=== PATIENT | male | born 1975 | race Caucasian/White ===

== ENCOUNTER → 2019-07-27 | Outpatient (CLI) | payer MEDICARE, OTHER ==
[~2019-07-27] MED LIST: AMLO10 PO; CARV25 PO; Catapres0.2 MG PO; LISI20 PO; RISP3 PO
[2019-07-27 12:53] LABS: BASOPHILS ABSOLUTE AUTO 0.05 K/mm3 (0.00-0.23); BASOPHILS PERCENT AUTO 1 % (0-2); EOSINOPHILS ABSOLUTE AUTO 0.33 K/mm3 (0.00-0.68); EOSINOPHILS PERCENT AUTO 4 % (0-6); Hematocrit 49.3 % (37.0-53.0); Hemoglobin 17.4 g/dL (13.5-17.5); IMMATURE GRAN ABSOLUTE AUTO 0.01 K/mm3 (0.00-0.10); IMMATURE GRAN PERCENT AUTO 0 % (0-1); LYMPHOCYTES ABSOLUTE AUTO 2.34 K/mm3 (0.84-5.20); LYMPHOCYTES PERCENT AUTO 27 % (21-46); MONOCYTES ABSOLUTE AUTO 0.42 K/mm3 (0.16-1.47); MONOCYTES PERCENT AUTO 5 % (4-13); Mean Corpuscular HGB 29.7 pg (26.0-34.0); Mean Corpuscular HGB Conc 35.3 g/dL (31.5-36.5); Mean Corpuscular Volume 84 fL (80-100); Mean Platelet Volume 9.6 fL (9.1-12.4); NEUTROPHILS ABSOLUTE AUTO 5.64 K/mm3 (1.96-9.15); NEUTROPHILS PERCENT AUTO 64 % (41-73); Platelet Count 297 K/mm3 (150-400); RDW Coefficient Variation 12.2 % (11.7-14.2); Red Blood Cell Count 5.85 M/mm3 (4.30-5.90); White Blood Cell Count 8.79 K/mm3 (4.00-11.30)
[2019-07-27 13:12] LABS: Alanine Aminotransfer (ALT/SGP 35 U/L (12-78); Albumin/Globulin Ratio 0.9 (0.8-1.8); Alk Phos 121 U/L (40-126); Anion Gap 11 mmol/L (6-16); Aspartate Aminotrans (AST/SGOT 27 U/L (12-37); Bilirubin, Total 0.4 mg/dL (0.1-1.0); Blood Urea Nitrogen 11 mg/dL (8-24); Bun/Creatinine Ratio 11.5 (12.0-20.0); CO2, Blood 26 mmol/L (21-32); Calcium, Blood 9.4 mg/dL (8.5-10.1); Chloride, Blood 104 mmol/L (98-108); Creatinine, Blood 0.96 mg/dL (0.60-1.20); Globulin, Blood 4.5 g/dL (2.2-4.0); Glomerular Filtration Rate >60 (60-); Glucose, Blood 107 mg/dL (70-99); Potassium, Blood 3.2 mmol/L (3.5-5.5); Sodium, Blood 141 mmol/L (136-145); Total Protein, Blood 8.5 g/dL (6.4-8.2)
== END | disposition home or self-care (01) ==
LOC: LAB SHORT 12:47 → LAB EV 12:47
PROVIDERS: Family Medicine
DX: I10 Essential (primary) hypertension (principal); R53.83 Other fatigue
CPT/HCPCS: 80053; 84443; 85025

== ENCOUNTER 2019-09-01 22:57 | Inpatient (IN) | payer MEDICARE ==
[~2019-09-01] VITALS: Ht 182.9 cm; Wt 104.6 kg
[2019-09-01 23:19] LABS: PCO2 Arterial 52.1 mmHg (35-45); PO2 Arterial 74.1 mmHg (80-100)
[2019-09-01 23:28] LABS: Source, Urine Catheter
[2019-09-01 23:30] LABS: Chloride (POC) 107 mmol/L (98-108); Creatinine (POC) 2.2 mg/dL (0.8-1.3); Glucose (ISTAT POC) 177 mg/dL (70-99); Potassium (POC) 2.6 mmol/L (3.5-5.5); Sodium (POC) 145 mmol/L (135-148); Total CO2 (POC) 21 mmol/L (21-32)
[2019-09-01 23:31] LABS: BASOPHILS ABSOLUTE AUTO 0.08 K/mm3 (0.00-0.23); BASOPHILS PERCENT AUTO 0 % (0-2); EOSINOPHILS ABSOLUTE AUTO 0.15 K/mm3 (0.00-0.68); EOSINOPHILS PERCENT AUTO 1 % (0-6); Hematocrit 49.1 % (37.0-53.0); Hemoglobin 16.7 g/dL (13.5-17.5); IMMATURE GRAN ABSOLUTE AUTO 0.09 K/mm3 (0.00-0.10); IMMATURE GRAN PERCENT AUTO 0 % (0-1); LYMPHOCYTES PERCENT AUTO 24 % (21-46); MONOCYTES ABSOLUTE AUTO 1.09 K/mm3 (0.16-1.47); MONOCYTES PERCENT AUTO 5 % (4-13); Mean Corpuscular HGB 29.3 pg (26.0-34.0); Mean Corpuscular Volume 86 fL (80-100); Mean Platelet Volume 9.6 fL (9.1-12.4); NEUTROPHILS PERCENT AUTO 69 % (41-73); Platelet Count 394 K/mm3 (150-400); RDW Coefficient Variation 12.4 % (11.7-14.2); RDW Standard Deviation 38.9 fL (35.1-46.3); Red Blood Cell Count 5.69 M/mm3 (4.30-5.90); White Blood Cell Count 20.61 K/mm3 (4.00-11.30)
[2019-09-01 23:33] LABS: Bilirubin, Urine Neg (Neg); Blood, Urine 1+ (Neg); Glucose Qualitative, Urine 1+ (Neg); Ketones, Urine 1+ (Neg); Leukocyte Esterase, Urine Neg (Neg); Nitrite, Urine Neg (Neg); Protein, Urine 3+ (Neg); Specific Gravity, Urine 1.015 (1.003-1.022); Urobilinogen, Urine NORM (Normal)
[2019-09-01 23:39] LABS: Amorphous Light (0-Heavy); Appearance, Urine Clear (Clear); Bacteria Rare /hpf; Color, Urine Yellow (P-Yellow); Granular Casts 0-2 /lpf (0); Mucus Light (0-Heavy); Red Blood Cells, Urine 0-2 /hpf (0-2); Squamous Epithelial Cells Not Seen /hpf (Few); White Blood Cells, Urine Not Seen /hpf (0-5)
[2019-09-01 23:48] LABS: U Amphetamine Screen Not Detected; U Barbituate Screen Not Detected; U Benzodiazapine Screen Not Detected; U Buprenorphine Screen Not Detected; U Cannabinoids Screen Not Detected; U Cocaine Screen Not Detected; U Methadone Screen Not Detected; U Methamphetamine Screen Not Detected; U Opiates Screen Not Detected; U Oxycodone Screen Not Detected; U Phencyclidine Screen Not Detected; U Propoxyphene Screen Not Detected
[2019-09-01 23:52] LABS: Alanine Aminotransfer (ALT/SGP 46 U/L (12-78); Albumin, Blood 4.5 g/dL (3.4-5.0); Alk Phos 115 U/L (50-136); Anion Gap 16 mmol/L (6-16); Aspartate Aminotrans (AST/SGOT 39 U/L (12-37); Bilirubin, Total 0.6 mg/dL (0.1-1.0); Blood Urea Nitrogen 22 mg/dL (8-24); Bun/Creatinine Ratio 10.8 (12.0-20.0); CO2, Blood 19 mmol/L (21-32); CPK Creatine Kinase 353 U/L (39-308); Chloride, Blood 108 mmol/L (98-108); Creatinine, Blood 2.04 mg/dL (0.60-1.20); Ethanol (Alcohol), Blood, Med <3 mg/dL; Globulin, Blood 4.6 g/dL (2.2-4.0); Glomerular Filtration Rate 38 (60-); Glucose, Blood 171 mg/dL (70-99); Potassium, Blood 2.6 mmol/L (3.5-5.5); Salicylate 4.8 mg/dL (2.8-20.0); Sodium, Blood 143 mmol/L (136-145); Total Protein, Blood 9.1 g/dL (6.4-8.2)
[2019-09-01 23:57] LABS: Acetaminophen, Random <2.0 ug/mL (10.0-30.0)
--- NOTE | 2019-09-02 00:06 | NUR ---
NOTIFIED BY [facility] THAT PT COMING TO ICU 4. CALLED ER FOR REPORT. WAITING RETURN PHONE CALL AT THIS TIME.
[2019-09-02 00:11] LABS: Creatine Kinase MB 7.1 ng/mL (0.0-3.6); Magnesium, Blood 1.9 mg/dL (1.6-2.4)
[2019-09-02 00:20] LABS: Calcium, Ionized (POC) 1.09 mmol/L (1.10-1.46); Chloride (POC) 111 mmol/L (98-108); Creatinine (POC) 2.1 mg/dL (0.8-1.3); Glucose (ISTAT POC) 150 mg/dL (70-99); Hemoglobin (POC) 12.6 g/dL (13.5-17.5); Potassium (POC) 2.5 mmol/L (3.5-5.5); Sodium (POC) 144 mmol/L (135-148); Total CO2 (POC) 24 mmol/L (21-32)
[2019-09-02 00:40] LABS: International Normalized Ratio 1.02; Prothrombin Time Results 10.8 Sec (9.7-11.5)
--- NOTE | 2019-09-02 00:51 | NUR ---
REPORT RECEIVED FROM YANETH IVAN
[2019-09-02 01:34] LABS: Automated CSF RBC Count 0.004 M/mm3 (0-0); Automated CSF WBC Count 0.005 K/mm3 (0-5); RBC Count, CSF 4000 /mm3 (0-0); WBC Count, CSF 5 /mm3 (0-5)
[2019-09-02 01:39] LABS: Glucose, CSF 86 mg/dL (40-70)
[2019-09-02 01:46] LABS: Appearance, CSF Clear (Clear); Color, CSF No Color (No Color); RBC Count, CSF 23 /mm3 (0-0); WBC Count, CSF 0 /mm3 (0-5)
[2019-09-02 01:47] LABS: Appearance, CSF Hazy (Clear); Color, CSF Pink (No Color)
[2019-09-02 02:17] LABS: PCO2 Arterial 39.1 mmHg (35-45); PO2 Arterial 100 mmHg (80-100); pH Blood Arterial 7.42 (7.35-7.45)
[2019-09-02 02:24] LABS: Lymphocytes, CSF 27 % (40-80); Monocytes, CSF 12 % (15-45); Neutrophils, CSF 61 % (0-6)
--- NOTE | 2019-09-02 04:56 | NUR ---
ARRIVAL TO ICU PT ARRIVED TO ICU 4 APPROX 0125. UPON ARRIVAL, PT INTUBATED, PROPOFOL RUNNING. VITALS STABLE. PT HAS EYES OPEN BUT LOOKING STRAIGHT AHEAD. PT ATTEMPTING TO REACH FOR VENT TUBING, SITS UP ENTIRE BODY HIGH ENOUGH TO PULL HANDS CLOSE TO TUBE. BILAT WRIST RESTRAINTS IN PLACE. INCREASED PROPOFOL TO EFFECT. SINCE THEN, PT HAS BEEN ADEQUATELY SEDATED. SEE FLOWSHEET FOR TITRATIONS. MEDICATIONS PER EMAR. SEE ADMISSION ASSESSMENT. THIS MORNING PT'S TEMPERATURE DECREASED, WARM BLANKETS APPLIED. NO CHANGES IN NEURO STATUS SINCE ARRIVAL ONCE PT ADEQUATELY SEDATED.
--- NOTE | 2019-09-02 06:23 | NUR ---
SUMMARY PT'S TEMP NOT IMPROVED WITH WARM BLANKETS. BIAR HUGGER APPLIED AND TEMP GRADUALLY INCREASING. PROPOFOL TITRATED DOWN. AT THIS TIME, PT WITHDRAWS TO PAIN, BREATHING AT APPROX 16-18. EYES CONTINUE TO BE PINPOINT AND FIXED, SLIGHTLY UPWARD FACING. VENT SETTINGS UNCHANGED. 02 SAT GREATER THAN 90. BP STABLE. HR CONTINUES TO BE SINUS RHYTHM SINUS EDD.
[2019-09-02 06:31] LABS: BASOPHILS ABSOLUTE AUTO 0.03 K/mm3 (0.00-0.23); BASOPHILS PERCENT AUTO 0 % (0-2); EOSINOPHILS ABSOLUTE AUTO 0.17 K/mm3 (0.00-0.68); EOSINOPHILS PERCENT AUTO 2 % (0-6); Hematocrit 36.8 % (37.0-53.0); Hemoglobin 12.4 g/dL (13.5-17.5); IMMATURE GRAN ABSOLUTE AUTO 0.04 K/mm3 (0.00-0.10); IMMATURE GRAN PERCENT AUTO 0 % (0-1); LYMPHOCYTES ABSOLUTE AUTO 3.02 K/mm3 (0.84-5.20); LYMPHOCYTES PERCENT AUTO 28 % (21-46); MONOCYTES PERCENT AUTO 5 % (4-13); Mean Corpuscular HGB 29.1 pg (26.0-34.0); Mean Corpuscular HGB Conc 33.7 g/dL (31.5-36.5); Mean Corpuscular Volume 86 fL (80-100); Mean Platelet Volume 9.6 fL (9.1-12.4); NEUTROPHILS ABSOLUTE AUTO 6.97 K/mm3 (1.96-9.15); NEUTROPHILS PERCENT AUTO 65 % (41-73); Platelet Count 221 K/mm3 (150-400); RDW Coefficient Variation 12.5 % (11.7-14.2); RDW Standard Deviation 39.5 fL (35.1-46.3); Red Blood Cell Count 4.26 M/mm3 (4.30-5.90); White Blood Cell Count 10.73 K/mm3 (4.00-11.30)
[2019-09-02 06:54] LABS: Alanine Aminotransfer (ALT/SGP 30 U/L (12-78); Albumin, Blood 2.9 g/dL (3.4-5.0); Alk Phos 69 U/L (50-136); Anion Gap 7 mmol/L (6-16); Aspartate Aminotrans (AST/SGOT 27 U/L (12-37); Bilirubin, Total 0.4 mg/dL (0.1-1.0); Blood Urea Nitrogen 21 mg/dL (8-24); Bun/Creatinine Ratio 15.4 (12.0-20.0); CO2, Blood 24 mmol/L (21-32); Calcium, Blood 8.4 mg/dL (8.5-10.1); Chloride, Blood 116 mmol/L (98-108); Creatinine, Blood 1.36 mg/dL (0.60-1.20); Glomerular Filtration Rate >60 (60-); Glucose, Blood 74 mg/dL (70-99); Sodium, Blood 147 mmol/L (136-145)
[2019-09-02 07:00] LABS: Total Protein, Blood 5.9 g/dL (6.4-8.2)
--- NOTE | 2019-09-02 07:11 | NUR ---
REPORT TO YANETH GODWIN AND MAGALYS RN TO ASSUME CARE
--- NOTE | 2019-09-02 07:47 | NUR ---
ASSUMED CARE OF PT AT 0700. REPORT FROM DAMIEN WOLFE. PT INTUBATED AND SEDATED. VENT SETTINGS, AC 16/450/5/40%. LUNGS CLEAR. OGT TO INTERMITTANT SUCTION, FORTUNE DRAINAGE. PROPOFOL INFUSING, PT c COUGH, GAG, REACHING UPWARDS TOWARDS ETT c DEEP SUCTIONING. RESTS WHEN UNDISTURBED. RESPONSES TO PAINFUL STIMULI. PUPILS PINPOINT. DELUCA PATENT AND DRAINING TO GRAVITY. TEMP 97.5, WARREN TAYLOR REMOVED. WILL CONTINUE TO MONITOR.
--- NOTE | 2019-09-02 09:20 | NUR ---
DR STANTON AT BEDSIDE. WILL DECREASE SEDATION TO ASSESS NEURO STATUS AND POSSIBLE EXTUBATION DURING THIS SHIFT. MAG AND PHOS ADDED TO AM LABS. WILL REPEAT TROPONIN AND K TODAY. WILL CONTINUE TO MONITOR.
[2019-09-02 09:37] LABS: Magnesium, Blood 1.9 mg/dL (1.6-2.4); Phosphorus, Blood 3.1 mg/dL (2.5-4.9)
--- NOTE | 2019-09-02 12:19 | NUR ---
RT AT BEDSIDE FOR DEEP SUCTIONING. PT BEGINS THRASHING HEAD c SUCTIONING. OPENS EYES ON COMMAND, SQUEEZES HANDS. REASSURED. PT RESTS WHEN UNDISTURBED. WILL CONTINUE TO MONITOR.
--- NOTE | 2019-09-02 14:12 | NUR ---
SPOKE c ERASMO, , PT'S ROOMMATE. STATES FOR LAST TWO DAYS PT HAD BEEN SLEEPING MORE. ALSO REPORTS PT LAUGHING HYSTERICALLY FOR LONG PERIODS OF TIME. HX OF DEPRESSION, ANXIETY, PANIC ATTACKS AND PARANOIA. 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 [facility] PT HAS BEEN OFF MEDS SINCE 01/05. ER[facility] PT IS NOT A DRUG USER AND DOES NOT DRINK ETOH.
--- NOTE | 2019-09-02 16:02 | NUR ---
ATTEMPTED SEDATION VACATION FOR INTUBATION. c TITRATING PROPOFOL DOWN, PT ABLE TO OPEN EYES, FOLLOWS COMMANDS. AFTER STOPPING PROPOFOL, PT BEGANS THRASHING IN BED, TURNING HEAD BACK AND FORTH, PULLING ON RESTRAINTS. UNABLE TO FOCUS EYES, EYE WANDER, ROLL BACKWARDS. DIFFICULT TO REDIRECT. NO LONGER FOLLOWS COMMANDS DURING THIS EPISODE. DR STANTON AT BEDSIDE TO OBSERVE BEHAVIOR. PT RESEDATED AT THIS TIME PER DR PUENTE c PROPOFOL 55 MCG/KG/MIN. PT RESTING AT THIS TIME.
--- NOTE | 2019-09-02 16:07 | NUR ---
CALL PLACED TO [facility] FOR MED LIST. PER ROOMMATE, THIS WAS LAST PHARMACY. MEDS LAST FILLED 11/03. MED LIST OBTAINED, DR MAXIMINO CONNORS.
[2019-09-02] MEDS ORDERED: AMLO10 PO (16:11)
[2019-09-02] MEDS ORDERED: LISI20 PO (16:12)
[2019-09-02] MEDS ORDERED: Catapres0.2 MG PO (16:12)
[2019-09-02] MEDS ORDERED: RISP3 PO (16:13)
--- NOTE | 2019-09-02 18:05 | NUR ---
SHIFT SUMMARY PT REMAINS SEDATED AND INTUBATED. VENT SETTINGS AC 16/450/5/30%. FAILED ATTEMPT AND EXTUBATION D/T PT BEHAVIOR s SEDATION. PT REMAINS ON PROPOFOL AT 55 MCG/KG/MIN. K+ REPLACED DURING SHIFT AND ELECTROLYTE REPLACEMENT INITIATED BY DR STANTON. TROPONINS TRENDING DOWN, ECHO COMPLETE. URINARY OUTPUT DECREASED DURING SHIFT, 250 ML c SEDIMENT OUT. 1+ EDEMA TO UPPER EXTREMITIES. OGT CLAMPED. ROOMMATE, ERASMO, REPORTS HX OF PSYCH, MED LIST FROM 11/[address] WILL START RISPERIDONE TONIGHT. REPORT TO ONCOMING NURSE.
--- NOTE | 2019-09-02 19:30 | NUR ---
[place] of Care: Patient intubated and sedated with propofol gtt at 55mcg/kg/min. Appears calm and comfortable, responds to verbal stimuli, follows simple commands to squeeze hands, move feet/legs. Denies pain/discomfort at this time. Vent to AC-16/450/5/30%, O2-94-96%. Peripheral IV's x3 patent and intact, infusing without difficulty. Scherer cath patent and intact, draining minimal amount of dark yellow urine. Will continue to monitor urine output, and consult Dr. Brady if output is not adequate. Bilateral soft wrist restraints in place for safety. Plan for sedation vacation and spontaneous breathing trial in the morning. Will continue to monitor for pain, safety, comfort.
[2019-09-03 03:48] LABS: BASOPHILS ABSOLUTE AUTO 0.03 K/mm3 (0.00-0.23); BASOPHILS PERCENT AUTO 0 % (0-2); EOSINOPHILS ABSOLUTE AUTO 0.48 K/mm3 (0.00-0.68); EOSINOPHILS PERCENT AUTO 6 % (0-6); Hematocrit 37.6 % (37.0-53.0); Hemoglobin 12.3 g/dL (13.5-17.5); IMMATURE GRAN ABSOLUTE AUTO 0.02 K/mm3 (0.00-0.10); IMMATURE GRAN PERCENT AUTO 0 % (0-1); LYMPHOCYTES ABSOLUTE AUTO 3.07 K/mm3 (0.84-5.20); LYMPHOCYTES PERCENT AUTO 37 % (21-46); MONOCYTES ABSOLUTE AUTO 0.41 K/mm3 (0.16-1.47); MONOCYTES PERCENT AUTO 5 % (4-13); Mean Corpuscular HGB 29.6 pg (26.0-34.0); Mean Corpuscular HGB Conc 32.7 g/dL (31.5-36.5); Mean Platelet Volume 10.1 fL (9.1-12.4); NEUTROPHILS ABSOLUTE AUTO 4.38 K/mm3 (1.96-9.15); NEUTROPHILS PERCENT AUTO 52 % (41-73); Platelet Count 228 K/mm3 (150-400); RDW Coefficient Variation 13.2 % (11.7-14.2); RDW Standard Deviation 43.3 fL (35.1-46.3); Red Blood Cell Count 4.16 M/mm3 (4.30-5.90); White Blood Cell Count 8.39 K/mm3 (4.00-11.30)
[2019-09-03 03:50] LABS: Mean Corpuscular Volume 90 fL (80-100)
[2019-09-03 04:08] LABS: Alanine Aminotransfer (ALT/SGP 26 U/L (12-78); Albumin, Blood 2.9 g/dL (3.4-5.0); Albumin/Globulin Ratio 0.9 (0.8-1.8); Alk Phos 77 U/L (50-136); Anion Gap 5 mmol/L (6-16); Aspartate Aminotrans (AST/SGOT 22 U/L (12-37); Bilirubin, Total 0.4 mg/dL (0.1-1.0); Blood Urea Nitrogen 22 mg/dL (8-24); Bun/Creatinine Ratio 18.2 (12.0-20.0); CO2, Blood 22 mmol/L (21-32); Calcium, Blood 8.3 mg/dL (8.5-10.1); Chloride, Blood 119 mmol/L (98-108); Creatinine, Blood 1.21 mg/dL (0.60-1.20); Globulin, Blood 3.2 g/dL (2.2-4.0); Glomerular Filtration Rate >60 (60-); Glucose, Blood 70 mg/dL (70-99); Potassium, Blood 3.4 mmol/L (3.5-5.5); Sodium, Blood 146 mmol/L (136-145); Total Protein, Blood 6.1 g/dL (6.4-8.2)
--- NOTE | 2019-09-03 06:32 | NUR ---
Shift Summary: Patient remains intubated/sedated throughout shift. Continues to respond to verbal stimuli and follow simple commands. Became restless and agitated with start of bed bath, x1 dose prn Ativan, effective to calm patient. Peripheral IV's remain patent and intact, infusing without difficulty. Scherer cath patent and intact, but only 250ml of dark yellow output throughout shift. Morning labs, showed potassium-3.4. This nurse ordered 40meq IV KCl per electrolyte replacement protocol, 1st 20meq infusing at this time. Appears calm and comfortable at this time. Will continue monitor until report to day shift RN.
--- NOTE | 2019-09-03 07:40 | NUR ---
ASSUMED CARE AT 0700. REPORT FROM ELVIS WOLFE. PT REMAINS SEDATED AND INTUBATED. VENT SETTINGS AC 16/450/5/30%. PROPOFOL INFUSING AT 55 MCG/KG/MIN. PT RESPONSIVE TO PAINFUL STIMULI. LUNGS CLEAR. VSS. KCL INFUSING. WILL REPEAT LABS AFTER INFUSION. OGT CLAMPED. DELUCA PATENT, DRAINING TO GRAVITY, SCANT AMOUNT OF URINE OUT IN BAG. WILL MONITOR FOR URINARY OUTPUT. 1+ EDEMA TO HANDS. WILL CONTINUE TO MONITOR.
[2019-09-03 11:42] LABS: Vancomycin, Trough 26.9 ug/mL (5.0-10.0)
--- NOTE | 2019-09-03 11:42 | NUR ---
CARE DISCUSSED c DR RAI. WILL START PRECEDEX AND ATTEMPT TO TITRATED DOWN PROPOFOL, POTENTIAL EXTUBATE TODAY. REPLACE KCL 40 MEQ IV, RECHECK LABS TOMORROW. HOLD TUBE FEEDINGS UNTIL 1400. SCANT AMOUNT OF URINE IN BAG, ATTEMPTED TO FLUSH s SUCCESS. DELUCA REMOVED, NEW DELUCA PLACE, YELLOW/BROWN URINE c SEDIMENT OUT INITIALLY, CLEARING NOW. WILL CONTINUE TO MONITOR.
--- NOTE | 2019-09-03 16:59 | NUR ---
SHIFT SUMMARY PT REMAINS INTUBATED AND SEDATED. VENT SETTINGS AC 16/450/5/30%. PROPFOL INFUSING AT 25 MCG/KG/MIN. STARTED PRECEDEX THIS SHIFT c GOAL TO DECREASE SEDATION FOR POSSIBLE EXTUBATION TOMORROW. INFUSING AT 0.3 MCG/KG/HR. PT NOT RESPONSIVE TO PAINFUL STIMULI AT THIS TIME. WILL CONTINUE TO TITRATE MEDS FOR DECREASED SEDATION. INITATED TUBE FEEDINGS, CURRENTLY AT 25 ML/HR. DELUCA REPLACED THIS SHIFT, PATENT AND DRAINING TO GRAVITY, DECREASED SEDIMENT DURING SHIFT. VSS. REPORT TO ONCOMING NURSE.
--- NOTE | 2019-09-03 19:30 | NUR ---
ASSUMED CARE RECEIVED REPORT FROM ZOË RN. PT IS LYING IN BED QUIET, INTUBATED WITH A 8.0 ETT, 26 @ LIP. VENT SETTINGS ARE AC16/450/5/30%. CURRENT GTTPS: PROPOFOL 25MCG/KG/MIN, PRECEDEX 0.3MCG/KG/HR, AND NS TKO. PT HAS SCD'S IN PLACE, SOFT WRIST RESTRAINTS SECURED TO BED, A DELUCA PATENT AND HANGING TO GRAVITY AN OG TUBE INFUSING 25ML OF VITAL HIGH TF PER HOUR. PT IS CURRENTLY SEDATED AND NOT RESPONDING TO NOXIOUS STIMULI.
--- NOTE | 2019-09-03 21:15 | NUR ---
RESIDUALS 2000- RESIDUALS WERE 325ML, REINSTILLED 250ML AND DISCARDED 75ML PER ORDERS. TUBE FEEDINGS ON PAUSE 2100- RESIDUALS WERE 350, REINSTILLED 250ML AND DISCARDED 100ML. TUBE FEEDINGS REMAIN ON PAUSE, WILL RECHECK AT 0000.
--- NOTE | 2019-09-03 23:06 | NUR ---
NEURO UPDATE AFTER BEDBATH, PT WAS RESPONSIVE TO VERBAL STIMULI. HE FOLLOWED BASIC DIRECTIONS: SQUEEZING MY FINGERS, WIGGLING HIS TOES. WHEN ASKED IF HE WAS IN PAIN, HE DID NOT RESPOND. THIS IS NEW FROM START OF SHIFT. PROPOFOL HAS BEEN TITRATED DOWN SLOWLY, WAS AT 15MCG/KG/MIN, AND PRECEDEX AT 0.2MCG/KG/HR. AT 2310 PT ATTEMPTED TO SELF EXTUBATE, RESTRAINTS HAD BECOME SLIGHTLY LOOSE AND HE GOT REALLY CLOSE, BUT WAS STOPPED BEFORE HE COULD COMPLETE THE TASK. PRECEDEX IS NOW AT 0.3MCG/KG/HR, AND, A PRN DOSE OF FENTANYL WAS GIVEN - HE IS AGITATED AND INTERMITTANTLY THRASHES AROUND. HE WAS MOVING ALL EXTREMETIES.
--- NOTE | 2019-09-04 00:03 | NUR ---
UPDATE GOAL FOR TONIGHT WAS TO WEAN OFF PROPOFOL MUCH POSSIBLE TO FACILITATE A POSSIBLE EXTUBATION TOMORROW, WHILE UTILIZING PRECEDEX FOR SEDATION. HOWEVER, PROPOFOL HAS BEEN TITRATED DOWN PT HAS BECOME INCREASINGLY ARROUSABLE AND RESPONSIVE - SEE PREVIOUS NOTE. AT 2350 PT BECOME EXTREEMLY AGITATED AND COMBATING STAFF FOLLOWING ORAL CARE, ATTEMPTING TO RIP, PULL AND HIT ANYTHING THAT HE COULD. SO PROPOFOL IS NOW AT 40ML/HR. PRECEDEX REMAINS AT 0.3MCG/KG/HR. PT IS CURRENTLY SEDATED, BLOOD PRESSURE IS IN A MUCH BETTER RANGE ~140'S SYSTOLIC (REACHED 220 SYSTOLIC DURING EPISODE).
--- NOTE | 2019-09-04 02:06 | NUR ---
TUBE FEEDING/RESIDUALS 0200 - RESIDUALS WERE 50ML; TUBE FEEDING RATE INCREASED TO 35ML/HR. WILL RECHECK RESIDUALS AT 0400.
[2019-09-04 03:17] LABS: BASOPHILS ABSOLUTE AUTO 0.03 K/mm3 (0.00-0.23); BASOPHILS PERCENT AUTO 0 % (0-2); EOSINOPHILS ABSOLUTE AUTO 0.49 K/mm3 (0.00-0.68); EOSINOPHILS PERCENT AUTO 6 % (0-6); Hematocrit 41.5 % (37.0-53.0); Hemoglobin 13.7 g/dL (13.5-17.5); IMMATURE GRAN ABSOLUTE AUTO 0.02 K/mm3 (0.00-0.10); IMMATURE GRAN PERCENT AUTO 0 % (0-1); LYMPHOCYTES ABSOLUTE AUTO 2.45 K/mm3 (0.84-5.20); LYMPHOCYTES PERCENT AUTO 28 % (21-46); MONOCYTES PERCENT AUTO 5 % (4-13); Mean Corpuscular HGB 29.4 pg (26.0-34.0); Mean Corpuscular Volume 89 fL (80-100); Mean Platelet Volume 9.9 fL (9.1-12.4); NEUTROPHILS ABSOLUTE AUTO 5.36 K/mm3 (1.96-9.15); NEUTROPHILS PERCENT AUTO 61 % (41-73); Platelet Count 223 K/mm3 (150-400); RDW Standard Deviation 42.5 fL (35.1-46.3); Red Blood Cell Count 4.66 M/mm3 (4.30-5.90); White Blood Cell Count 8.75 K/mm3 (4.00-11.30)
[2019-09-04 03:35] LABS: Anion Gap 5 mmol/L (6-16); Blood Urea Nitrogen 20 mg/dL (8-24); Bun/Creatinine Ratio 20.6 (12.0-20.0); CO2, Blood 21 mmol/L (21-32); Calcium, Blood 8.8 mg/dL (8.5-10.1); Chloride, Blood 120 mmol/L (98-108); Creatinine, Blood 0.97 mg/dL (0.60-1.20); Glomerular Filtration Rate >60 (60-); Glucose, Blood 84 mg/dL (70-99); Phosphorus, Blood 2.9 mg/dL (2.5-4.9); Sodium, Blood 146 mmol/L (136-145)
--- NOTE | 2019-09-04 04:23 | NUR ---
CALL TO DR. ECHEVARRIA/HYPERTENSION PT HAS BEEN HYPERTENSIVE MAJORITY OF NIGHT (SEE FLOW SHEET FOR VS). I PLACED A CALL TO DR. ECHEVARRIA REGARDING MANAGEMENT OF BLOOD PRESSURE, HE ORDERED A NOW DOZE OF NORVASC 10MG PT, AND FOR HIM TO HAVE A SCHEDULED AM DOSE STARTING THE FOLLOWING DAY (09/05/19). PT TAKES NORVASC, LISINOPRIL AND CLONIDINE AT HOME ACCORDING TO HIS MED REC. DR. ECHEVARRIA IS IS CAUTIOUS ABOUT DROPPING HIS BP TOO FAST, AND DECIDED TO WAIT ON STARTING HIS OTHER BP MEDS FOR THE TIME BEING.
--- NOTE | 2019-09-04 06:47 | NUR ---
SHIFT SUMMARY PT REMAINS INTUBATED ON VENT AC16/450/5/30%. CURRENT GTTPS: PROPOFOL 40MCG/KG/MIN, PRECEDEX 0.3MCG/KG/HR, AND NS TKO. SEE PREVIOUS NOTES REGARDING NEURO STATUS AND RESIDUALS. PT HAS RANGED FROM EXTREEME AGITATION TO VERY SEDATED. HE IS RECIEVING TF (VITAL HIGH) AT 35ML/HR VIA OG TUBE. HE IS RESTRAINED VIA BILATERAL SWB. HE HAS A PATENT DELUCA THAT HAS DRAINED 700 ML OF DARK YELLOW URINE, WITH SEDIMENT. PT HAS BEEN IN SINUS EDD-NSR, RATE IN LOW 60'S; HE IS HYPERTENSIVE SBP 160-170'S. DISTANT S1S2. A TAD COARSE IN UPPER LOBES, THAT HAVE CLEARED UP A TOUCH, AND DIMINISHED BASES. SMALL AMOUNT OF CLEAR THIN TRACHEAL AND ORAL SPUTUM SUCTIONED VIA INLINE, AND YANKAUR. NO BM OVERNIGHT, AND HYPOACTIVE BS. HE HAS DISTENDED, NON TENDER ABDOMEN. GOOD PULSES IN ALL EXTREMETIES. NO FAMILY OR FRIENDS PRESENT. BED IS LOW AND LOCKED.
--- NOTE | 2019-09-04 08:00 | NUR ---
INITIAL ASSESMENT PT SEDATED ON PRECIDEX AND PROP, NO NON VERBAL INDICATIONS OF PAIN. MCKEON, WILL NOT FOLLOW COMMANDS, POS GAG/COUGH AND SWALLOW. PUPILS EQUAL. VSS, PALP PULSES RESTRAINTS CIRC AND SKIN CHECKED AND WNL, SOFT BILAT WRIST RESTRAINTS. SR AND AFEBRILE. TOLERATING VENT SETTINGS AND WILL PLAN SBT. CLEAR AND DIM BILAT. 8.0 AT 25, SATS WNL. NO SPUTUM WITH ETT SXN. TOLERATING TF WITH WNL RESIDUAL, NO BM WILL ADVANCE PER PROTOCOL AND TOLERATED VIA OG. ABD SOFT ROUND AND NON TENDER WITH HYPO BT T/O. UO ADEQUATE. SKIN INTACT AND WILL CONT TO MONITOR
--- NOTE | 2019-09-04 12:10 | NUR ---
PT UPDATE PT SAFELY EXTUBATED FOLLOWING SEDATION VACATION AND SBT PER PROTOCOL WITH THIS RN, RT AND MD AT BEDSIDE. PT IMMEDIATELLY VIOLENT, AGGITATED AND SEVERE RISK TO SELF AND STAFF ALTHOUGH IN TWO POINT SOFT WRIST RESTRAINTS. PRN ANXIETY RX GIVEN PER MD ORDER. PRECIDEX TITRATED PER MD ORDER. PT REMAINS AGGITATED AND AT RISK, REORIENTED, ORIENTED TO SELF, OPENS EYES TO COMMAND, PUPILS EQUAL, HYPERTENSIVE, TACHYCARDIC, 4LNC WITH SATS IN THE LOW 90S. CLEAR AND DIM, UO ADEQUATE. OG/TF TUBE D/C UPON EXTUBATION. NO BM. SKIN INTACT. WILL CONT TO MONITOR
--- NOTE | 2019-09-04 13:00 | NUR ---
PT UPDATE PT POST EXTUBATION CONTINUES TO DISPLAY SIGNIFICANT RISK TO HARMING SELF AND STAFF KICKING AT STAFF AND END BOARD, TRYING TO GRAB SIDE RAIL, SITTING UP AND AT TIMES BUCKLING HIS BACK TO ATTEMPT BED EXIT. MD BEDSIDE, SECURITY CALLED AND THIS RN, LEENA, ADAM WOLFE AND TWO SECURITY PERSONELL SAFELY APPLIED 4 POINT RIGID RESTRAINTS TO ASSURE PT SAFETY AND STAFF SAFETY WAS PRESERVED.
--- NOTE | 2019-09-04 18:31 | NUR ---
PT UPDATE PT REMAINS ON PRECIDEX AND LESS COMBATIVE STILL RESTRAINED FOR PT AND STAFF SAFETY. WILL OPEN EYES TO VERBAL STIM BUT DOES NOT FOLLOW COMMANDS VSS, SBP IN THE 180S, ADVISED AND PRN LABETOLOL GIVEN TIMES TWO. CLONIDINE TO START TONIGHT AND PRN LABETOLOL ORDERED TO KEEP SBP UNDER 190S. OXIMIZER AT 5L, SATS WNL AND WEANING TOLERATED. NPO, NO BM. UO ADEQUATE AND DARK BROWN WITH SEDIMENT. WILL CONT TO MONITOR AND HANDOFF CARE TO PM RN
--- NOTE | 2019-09-04 19:22 | NUR ---
ASSUMED CARE RECEIVED REPORT FROM YANETH WEEMS. PT IS IN BED ASLEEP. HE HAS 4 POINT TOUGH CUFF RESTRAINTS SECURED TO BED. HE HAS BILATERAL SCD'S IN PLACE. A PATENT DELUCA HANGING TO GRAVITY. CURRENTLY RECEIVING A PRECEDEX GTTP AT 1.2MCG/KG/HR. BP IS ELEVATED, HR IN THE 80'S, AND SATS IN THE HIGH 90'S. HE HAS AN OXYMIZER AT 5L. BED IS LOW AND LOCKED.
--- NOTE | 2019-09-04 21:36 | NUR ---
CALL TO MD KEBEDE PLACED VIA RIGHT NARE AND CXR DONE. DR REID CONFIRMED PLACMENT AT 80 CM.
[2019-09-05 03:11] LABS: BASOPHILS ABSOLUTE AUTO 0.04 K/mm3 (0.00-0.23); BASOPHILS PERCENT AUTO 1 % (0-2); EOSINOPHILS ABSOLUTE AUTO 0.42 K/mm3 (0.00-0.68); EOSINOPHILS PERCENT AUTO 5 % (0-6); Hematocrit 43.4 % (37.0-53.0); Hemoglobin 14.8 g/dL (13.5-17.5); IMMATURE GRAN ABSOLUTE AUTO 0.02 K/mm3 (0.00-0.10); IMMATURE GRAN PERCENT AUTO 0 % (0-1); LYMPHOCYTES ABSOLUTE AUTO 1.89 K/mm3 (0.84-5.20); LYMPHOCYTES PERCENT AUTO 23 % (21-46); MONOCYTES ABSOLUTE AUTO 0.38 K/mm3 (0.16-1.47); MONOCYTES PERCENT AUTO 5 % (4-13); Mean Corpuscular HGB 29.1 pg (26.0-34.0); Mean Corpuscular HGB Conc 34.1 g/dL (31.5-36.5); Mean Corpuscular Volume 85 fL (80-100); Mean Platelet Volume 9.3 fL (9.1-12.4); NEUTROPHILS ABSOLUTE AUTO 5.64 K/mm3 (1.96-9.15); NEUTROPHILS PERCENT AUTO 67 % (41-73); Platelet Count 240 K/mm3 (150-400); RDW Coefficient Variation 12.1 % (11.7-14.2); RDW Standard Deviation 37.9 fL (35.1-46.3); Red Blood Cell Count 5.08 M/mm3 (4.30-5.90); White Blood Cell Count 8.39 K/mm3 (4.00-11.30)
[2019-09-05 03:27] LABS: Anion Gap 9 mmol/L (6-16); Blood Urea Nitrogen 10 mg/dL (8-24); Bun/Creatinine Ratio 12.5 (12.0-20.0); CO2, Blood 25 mmol/L (21-32); Calcium, Blood 8.9 mg/dL (8.5-10.1); Chloride, Blood 113 mmol/L (98-108); Glomerular Filtration Rate >60 (60-); Glucose, Blood 101 mg/dL (70-99); Magnesium, Blood 1.8 mg/dL (1.6-2.4); Potassium, Blood 3.3 mmol/L (3.5-5.5); Sodium, Blood 147 mmol/L (136-145)
--- NOTE | 2019-09-05 07:56 | NUR ---
SHIFT SUMMARY PT IS LYING IN BED SEDATED FOR MAJORITY OF NIGHT WITH PRECEDEX AT 1.0MCG/KG/HR. HE RECEIVED ONE DOSE OF ATIVAN AT START OF SHIFT, AND HAS BEEN ELIZABETH OF 4 UNTIL THIS MORNING - HE IS STARTING TO BECOME INCREASINGLY RESTLESS. DOBHOF WAS PLACED OVERNIGHT, DUE TO NEEDING HIS BP/PSYCH MEDS AND BEING A HIGH ASPIRATION RISK. HE TOLERATED IT WELL SURPRISINGLY. BP HAS BEEN VERY HIGH SINCE START OF SHIFT, SBP 175-205, MAINLY HANGING AROUND THE 190'S. CALL WAS PLACED TO DR. FERRO REGARDING BP MANAGEMENT - LABETOLOL DIDN'T WORK, CLONIDINE PT DIDN'T HELP, SO WE STARTED A NICARDIPINE DRIP. HE INSTRUCTED TO KEEP BP BETWEEN 180-190, BEING CAUTIOUS TO TO DROP THE BP TOO FAST. NICARDIPINE IS CURRENTLY ON STANDBY BECAUSE EVEN AT LOW DOSES LIKE 0.5MG/HR IT WAS DROPPING HIM TO LOW 140'S. HE HAS A MORNING DOSE OF NORVASC AND LISINOPRIL TO TAKE, SO HOPEFULLY THAT CAN BE EFFECTIVE, AND HE CAN REMAIN OFF NICARDIPINE. UNFORTUNATELY, THE PT RIPPED OUT THE DOBHOFF, DESPITE BEING IN 4 POINT TAT RESTRAINTS THAT WERE SECURED TO THE BED. PT HAD 1500ML TEA COLORED URINE, DELUCA HANGING TO GRAVITY. NO BM TONIGHT. PT IS DIAPHORETIC. SINUS RYTHM IN THE 70-80'S. SCD'S IN PLACE. BED IS LOW AND LOCKED.
--- NOTE | 2019-09-05 11:01 | NUR ---
PATIENT AWAKE, AGITATED, TRYING TO REMOVE DELUCA CATHETER WITH HIS TOES. O2 SENSOR AND OXYMIZER OFF WELL. PT NOT RE-DIRECTABLE AT THIS TIME, NOT FOLLOWING INSTRUCTIONS, UNABLE TO REORIENT. DUE TO SELF HARMING BEHAVIORS, ATIVAN 2 MG IV GIVEN WITH GOOD EFFECT. DELUCA CATHETER WITH HEMATURIA; FLUSHED WITH 120 STERILE NS AND URINE FLOWING EASILY. RE-PLACED STAT-LOCK. REINFORCED TAT RESTRAINTS, GOOD CIRCULATION AND SENSATION. PATIENT RESTING COMFORTABLY.
--- NOTE | 2019-09-05 11:38 | NUR ---
DR. REID AT BEDSIDE. GAVE UPDATE ON PT CONDITION. PROVIDER ORDERED SBP GOAL TO BE 160-170, NO BENZOS, GIVE ANTI-PSYCHOTICS INSTEAD (IE OLANZAPINE IM), WILL ADD DEXTROSE IVF FOR ELEVATED SODIUM. ADVISED PROVIDER THAT PT ABLE TO TAKE ALL MORNING PILLS PO WITH WATER WHEN ALERT.
--- NOTE | 2019-09-05 13:43 | NUR ---
PLACED DOBHOFF NGT TO R NARES AT 66 CM. CXR PENDING.
--- NOTE | 2019-09-05 18:45 | NUR ---
SHIFT SUMMARY: PATIENT SEDATED WITH PRECEDEX AT 0.7 MCG/KG/MIN. OLANZAPINE IM GIVEN EARLIER TODAY WITH GOOD EFFECT. NO FURTHER EPISODES OF AGITATION, HAS BEEN SLEEPING. HR IN NSR, BP AT GOAL OF 160-170 MM HG, NICARDIPINE PLACED ON STAND BY. O2 SATS 94-96% ON RA. DELUCA DRAINING HEMATURIA, HAS CLEARED TO CHAN JESUSITA AID COLOR, NO VISIBLE CLOTS. DOBHOFF PLACEMENT VERIFIED BY RADIOLOGIST, STYLET REMOVED. ORAL CARE [id number], TOLERATING WELL.
--- NOTE | 2019-09-05 19:32 | NUR ---
ASSUMED CARE RECEIVED REPORT FROM POLA RN. PT IS LYING IN BED ASLEEP IN 4 POINT RESTRAINTS - TAT. PT HAS PRECEDEX RUNNING AT 0.5MCG/KG/HR, D5W AT 100ML/HR. HE HAS A DOBHOF IN HIS RIGHT NARE FOR MEDICATION ADMINISTRATION. A PATENT DELUCA, HANGING TO GRAVITY COLLECTING URINE. IV'S ARE PATENT, FLUSHING WELL. VITALS STABLE, ASIDE AN ELEVATED BP - BUT ISN'T ABNORMAL OR HIM. BED IS LOW AND LOCKED.
[2019-09-06 03:23] LABS: BASOPHILS ABSOLUTE AUTO 0.03 K/mm3 (0.00-0.23); BASOPHILS PERCENT AUTO 0 % (0-2); EOSINOPHILS ABSOLUTE AUTO 0.54 K/mm3 (0.00-0.68); EOSINOPHILS PERCENT AUTO 6 % (0-6); Hematocrit 42.8 % (37.0-53.0); Hemoglobin 14.8 g/dL (13.5-17.5); IMMATURE GRAN ABSOLUTE AUTO 0.02 K/mm3 (0.00-0.10); IMMATURE GRAN PERCENT AUTO 0 % (0-1); LYMPHOCYTES ABSOLUTE AUTO 2.12 K/mm3 (0.84-5.20); LYMPHOCYTES PERCENT AUTO 25 % (21-46); MONOCYTES ABSOLUTE AUTO 0.46 K/mm3 (0.16-1.47); MONOCYTES PERCENT AUTO 5 % (4-13); Mean Corpuscular HGB 29.4 pg (26.0-34.0); Mean Corpuscular HGB Conc 34.6 g/dL (31.5-36.5); Mean Corpuscular Volume 85 fL (80-100); Mean Platelet Volume 9.5 fL (9.1-12.4); NEUTROPHILS PERCENT AUTO 63 % (41-73); Platelet Count 243 K/mm3 (150-400); RDW Coefficient Variation 12.1 % (11.7-14.2); RDW Standard Deviation 37.3 fL (35.1-46.3); Red Blood Cell Count 5.04 M/mm3 (4.30-5.90); White Blood Cell Count 8.47 K/mm3 (4.00-11.30)
[2019-09-06 03:31] LABS: Anion Gap 8 mmol/L (6-16); Blood Urea Nitrogen 8 mg/dL (8-24); Bun/Creatinine Ratio 12.3 (12.0-20.0); CO2, Blood 27 mmol/L (21-32); Calcium, Blood 8.7 mg/dL (8.5-10.1); Chloride, Blood 108 mmol/L (98-108); Creatinine, Blood 0.65 mg/dL (0.60-1.20); Glomerular Filtration Rate >60 (60-); Glucose, Blood 122 mg/dL (70-99); Magnesium, Blood 1.8 mg/dL (1.6-2.4); Potassium, Blood 3.4 mmol/L (3.5-5.5); Sodium, Blood 143 mmol/L (136-145)
--- NOTE | 2019-09-06 07:21 | NUR ---
PATIENT PERMISSION PATIENT SEDATED AND UNABLE TO PROVIDE VERBAL CONSENT FOR TERRAZZO FINISHER CARE. NURSE ON STAFF HAS GIVEN CONSENT FOR THIS STUDENT NURSE TO PROVIDE CARE FROM [phone] ON 09/06/19.
--- NOTE | 2019-09-06 07:26 | NUR ---
SHIFT SUMMARY PT REMAINS IN 4 POINT TAT RESTRAINTS. HAS BEEN QUIET FOR MAJORITY OF NIGHT SLEEPING AND SNORING. HE IS ABLE TO RESPOND AND FOLLOW SIMPLE COMMANDS, BUT IS DISORIENTED. LAST FEW HOURS PT HAS BEEN INCREASINGLY AROUSED, YET SOMNOLENT. MUTTERS TO HIMSELF, SOMETIMES CRYING SOFTLY, SOMETIMES BACK TO SLEEP SNORING. HE IS ON PRECEDEX AT 0.8MCG/KG/HR. NICARDIPINE IS ON STANDBY, AND WAS TITRATED ON AND OFF MANY TIMES OVER NIGHT TO ACHIEVE A SBP 170-180. HE IS IN NSR, RATE USUALLY IN THE 70'S. HE IS ON RA, SAT'ING MID 90'S. NO BM OVERNIGHT, AND LOTS OF URINE OUTPUT, 1500ML BLOOD TINGED URINE. HE HAS A DOBHOF FOR MED ADMINISTRATION. BED IS LOW AND LOCKED. DELUCA PATENT AND HANGING TO GRAVITY.
--- NOTE | 2019-09-06 08:28 | NUR ---
ASSUMED CARE: RECEIVED REPORT FROM NOC RN. PT LYING IN BED RESTRAINED WHEN ENTERING THE ROOM. PT GRUNTS AND MOANS TO SOUNDS IN HIS ROOM. WHEN ADDRESSING HIM PT RESPONDS MUMMBLING. PT STATES HIS ANGER ISSUES ARE GETTING BETTER. ASKED PT WHAT DRUGS HE TOOK WHEN HE GOT ANGRY PT STATES "[place] AND MUSHROOMS". WILL CONTINUE TO MONITOR AND ASSESS FURTHER. NO ACUTE DISTRESS NOTED AT THIS TIME.
--- NOTE | 2019-09-06 08:32 | NUR ---
NICARDIPINE: STARTED AT 0.5MG/HR AT THIS TIME D/T BP NOTE AT 180/114.
--- NOTE | 2019-09-06 11:13 | NUR ---
NICARDIPINE IS PLACED ON STANDBY AT THIS TIME.
--- NOTE | 2019-09-06 19:13 | NUR ---
SHIFT SUMMARY: PT HAS BEEN COOPERATIVE T/O THE DAY AND RESTRAINTS HAVE BEEN REMOVED. HR WAS NOTED TO BE ELIVATED CONTINUED TO MONITOR TO SEE IF IT WOULD DECREASE ONCE PT INCREASED STIMULATION AND AGITATION DECREASED. PT HAS APPERED TO BE DROUSY T/O THE DAY. PRECEDEX WAS TURNED OFF AT APPROX 1400. DR HWANG CAME IN TO ASSESS PT AND WAS HE WAS ABLE TO INTERACT WITH PT WITHOUT THE PRECEDEX ON. REPORT GIVEN TO ONCOMING RN. REVIEWED CONCERNS AND ORDERS
--- NOTE | 2019-09-06 21:06 | NUR ---
[place] of Care: Care assumed at 1900hr. Patient sleeping but easily roused to verbal stimuli, oriented x4. Denies pain, discomfort, SOB, or dyspnea. O2- 92-96% on RA while awake. Placed on 2L/NC while sleeping for O2-87%, now increased to 94-96%. HR showed SIT in the 120's-130 at shift change, then increased to 140's, systolic BP 170's-190's. 10mg prn IV Labetalol given, effective to decrease HR to 110, BP now 150's-170s. Nicardipine gtt infusing at 0.5mg/hr, will continue to monitor and titrate as indicated. DobHoff to rt nare for purpose of medication administration, patent and intact. Scherer cath patent and intact, draining clear yellow urine. Patient calm and cooperative with staff at this time. Appears restless in bed, fidgeting his hands, but no attempt to get out of bed, following commands. Bed alarm in place for safety, call light in reach. Will continue to monitor for pain, safety, comfort.
[2019-09-07 04:01] LABS: BASOPHILS ABSOLUTE AUTO 0.04 K/mm3 (0.00-0.23); BASOPHILS PERCENT AUTO 0 % (0-2); EOSINOPHILS ABSOLUTE AUTO 0.53 K/mm3 (0.00-0.68); EOSINOPHILS PERCENT AUTO 6 % (0-6); Hematocrit 46.8 % (37.0-53.0); Hemoglobin 15.9 g/dL (13.5-17.5); IMMATURE GRAN ABSOLUTE AUTO 0.03 K/mm3 (0.00-0.10); IMMATURE GRAN PERCENT AUTO 0 % (0-1); LYMPHOCYTES ABSOLUTE AUTO 1.95 K/mm3 (0.84-5.20); LYMPHOCYTES PERCENT AUTO 21 % (21-46); MONOCYTES ABSOLUTE AUTO 0.48 K/mm3 (0.16-1.47); MONOCYTES PERCENT AUTO 5 % (4-13); Mean Corpuscular Volume 85 fL (80-100); Mean Platelet Volume 9.4 fL (9.1-12.4); NEUTROPHILS ABSOLUTE AUTO 6.41 K/mm3 (1.96-9.15); NEUTROPHILS PERCENT AUTO 68 % (41-73); Platelet Count 271 K/mm3 (150-400); RDW Coefficient Variation 12.2 % (11.7-14.2); RDW Standard Deviation 38.1 fL (35.1-46.3); Red Blood Cell Count 5.49 M/mm3 (4.30-5.90); White Blood Cell Count 9.44 K/mm3 (4.00-11.30)
[2019-09-07 04:16] LABS: Anion Gap 9 mmol/L (6-16); Blood Urea Nitrogen 12 mg/dL (8-24); Bun/Creatinine Ratio 16.8 (12.0-20.0); CO2, Blood 25 mmol/L (21-32); Calcium, Blood 9.1 mg/dL (8.5-10.1); Chloride, Blood 107 mmol/L (98-108); Creatinine, Blood 0.72 mg/dL (0.60-1.20); Glomerular Filtration Rate >60 (60-); Glucose, Blood 77 mg/dL (70-99); Magnesium, Blood 1.7 mg/dL (1.6-2.4); Potassium, Blood 3.4 mmol/L (3.5-5.5); Sodium, Blood 141 mmol/L (136-145)
--- NOTE | 2019-09-07 08:30 | NUR ---
ENTERED PT ROOM AND OG WAS MOSTLY PULLED OUT AND PT HAD TORN OFF DELUCA SECUREMENT DEVICE. REMOVED OG TUBE. REPOSITIONED, REASSURANCE GIVEN. PT AGITATED, PRN ZYPREXA GIVEN.
--- NOTE | 2019-09-07 12:00 | NUR ---
PT IS CURRENTLY RESTING COMFORTABLY. CONFUSED AT TIMES, BUT FOLLOWS COMMANDS. PT IS IN SINUS TACH WITH HR FROM 100-110S. HTN AT TIMES WITH GOAL TO KEEP SPB <190. LUNG SOUNDS CLEAR THROUGHOUT AND IS SATTING >90% ON 5L NC. PT HAS NOT HAD A BOWEL MOVEMENT TODAY HOWEVER BOWEL TONES ARE NORMOACTIVE. DELUCA TEMP IS IN PLACE AND DRAINING DARK COLORED URINE. PT HAS LAC AND LFA 20G IVS. LAC IS CURRENTLY INFUSING. LFA IS PATENT. PT IS DIET TOLERATED AND HAS BEEN SERVED LUNCH. WILL CONTINUE TO MONITOR. NO ACUTE CHANGES AT THIS TIME.
--- NOTE | 2019-09-07 12:04 | NUR ---
PT A&O. WAS EXTUBATED AT 0830 TO 3 L. PT TOLERATED WELL. PT NSR HR REMAINS IN 70S, SBP IN 120S. LUNG SOUNDS REMAIN CLEAR WITH PRODUCTIVE COUGH. DELUCA D/C'D AND PT HAS URINE OUTPUT OF 175 POST REMOVAL. PT HAS HAD 1 SMALL DARK, LOOSE STOOL AND THEN A SCANT AMOUNT OF STOOL. PTS R ARM IS SWOLLEN AND TENDER THEREFORE THE IV WAS D/C'D ON THAT ARM. RIJ REMAINS IN PLACE INFUSING.
--- NOTE | 2019-09-07 17:22 | NUR ---
SHIFT SUMMARY: PT ALERT AND ORIENTED TO SITUATION, PLACE, SELF. HAS HAD MOMENTS OF CONFUSION THROUGHOUT THE DAY. HOWEVER, AT THE TIME OF THIS NOTE PT REPORTS NO AUDIO/VISUAL HALLUCINATIONS. IS ABLE TO FOLLOW COMMANDS. CURRENTLY ON RA SATTING AT >90%. SINUS TACH, HTN AT TIMES. GOAL IS TO KEEP SBP <190. HR CURRENTLY IN THE 90S AND SBP IN THE 160S. NO BOWEL MOVEMENT THIS SHIFT HOWEVER BOWEL TONES ARE NORMOACTIVE. DELUCA WAS D/C'D TODAY AND PT HAS URINAL AT BEDSIDE. SKIN IS CLEAN AND INTACT EXCEPT FOR A REDDENED BLISTERED AREA ON R BUTTOCK. IVS TO LFA AND LAC. SALINE LOCKED. NO ACUTE CHANGES THIS SHIFT. WILL CONTINUE TO MONITOR. BED LOW AND CALL LIGHT IN REACH.
--- NOTE | 2019-09-07 18:24 | NUR ---
PT BP ELEVATED HOWEVER COREG 12.5 GIVEN AT 1700. BP <160.
[2019-09-08 04:05] LABS: Hematocrit 43.7 % (37.0-53.0); Hemoglobin 14.8 g/dL (13.5-17.5); Mean Corpuscular HGB 28.8 pg (26.0-34.0); Mean Corpuscular HGB Conc 33.9 g/dL (31.5-36.5); Mean Corpuscular Volume 85 fL (80-100); Mean Platelet Volume 9.6 fL (9.1-12.4); Platelet Count 262 K/mm3 (150-400); RDW Coefficient Variation 12.3 % (11.7-14.2); RDW Standard Deviation 37.5 fL (35.1-46.3); Red Blood Cell Count 5.14 M/mm3 (4.30-5.90); White Blood Cell Count 7.71 K/mm3 (4.00-11.30)
[2019-09-08 04:23] LABS: BASOPHILS PERCENT MAN 0 % (0-2); EOSINOPHILS ABSOLUTE MAN 0.84 K/mm3 (0.00-0.68); EOSINOPHILS PERCENT MAN 11 % (0-6); LYMPHOCYTES ABSOLUTE MAN 2.54 K/mm3 (0.84-5.20); LYMPHOCYTES PERCENT MAN 33 % (21-46); MONOCYTES PERCENT MAN 4 % (4-13); SEG NEUTROPHILS PERCENT MAN 52 % (41-73); TOTAL CELLS COUNTED 100
[2019-09-08 04:25] LABS: Alanine Aminotransfer (ALT/SGP 33 U/L (12-78); Albumin, Blood 3.2 g/dL (3.4-5.0); Albumin/Globulin Ratio 0.8 (0.8-1.8); Alk Phos 99 U/L (50-136); Anion Gap 6 mmol/L (6-16); Aspartate Aminotrans (AST/SGOT 30 U/L (12-37); Bilirubin, Total 0.7 mg/dL (0.1-1.0); Blood Urea Nitrogen 20 mg/dL (8-24); Bun/Creatinine Ratio 27.2 (12.0-20.0); CO2, Blood 28 mmol/L (21-32); Calcium, Blood 9.1 mg/dL (8.5-10.1); Chloride, Blood 106 mmol/L (98-108); Creatinine, Blood 0.74 mg/dL (0.60-1.20); Glomerular Filtration Rate >60 (60-); Glucose, Blood 77 mg/dL (70-99); Magnesium, Blood 1.7 mg/dL (1.6-2.4); Phosphorus, Blood 3.3 mg/dL (2.5-4.9); Potassium, Blood 3.4 mmol/L (3.5-5.5); Sodium, Blood 140 mmol/L (136-145); Total Protein, Blood 7.2 g/dL (6.4-8.2)
--- NOTE | 2019-09-08 05:19 | NUR ---
SHIFT SUMMARY PT SLEEPING IN ROOM COMFORTABLY AT THIS TIME. PT HAD NO ACUTE CHANGES T/O NIGHT. PT SLEPT WELL T/O NIGHT WOKE ONLY TWICE TO USE URINAL AT BEDSIDE. PT WAS EASILY REDIRECTABLE T/O NIGHT, AND REMAINED IN BED IN ROOM. RESP EVEN UNLABORED ON RA W/ SATS >92%. PT HAD SEVERAL SHORT EPISODES OF LOWS 02 SATS WHILE SLEEPING, 1.5L NC PLACED ON PT TO ASSIST IN SATSURATION, SATS THEN >95%. PT DENIED OTHER NEEDS T/O NIGHT. DENIED ANY CP OR SOB. CALL LIGHT IN REACH. BED ALARM ON FOR PT IMPULSIVITY.
--- NOTE | 2019-09-08 06:38 | NUR ---
PT REFUSING O2 O2 SENSOR REMOVED FROM FINGER D/T PT SATS REMAINED ABOVE 92% WHEN AWAKE AND PT REFUSAL TO WEAR O2 WHILE SLEEPING. DIPS IN SATS ARE SHORT AND QUICKLY RESOLVED TO >92% WHEN PT REPOSITIONS.
--- NOTE | 2019-09-08 07:15 | NUR ---
REC'D REPORT FROM YANETH BIRD AND AM NOW ASSUMING CARE OF THIS PT.
--- NOTE | 2019-09-08 08:36 | NUR ---
DR CARMEN IN TO ASSESS PT. PT NOW MEDICAL STATUS, NO TELE. WILL TNX WHEN A BED IS AVAILABLE.
--- NOTE | 2019-09-08 10:05 | NUR ---
REPORTED OFF TO MEDICAL FLOOR RN. WHOM WILL BE ASSUMING CARE OF THIS PT.
--- NOTE | 2019-09-08 10:27 | NUR ---
PT TRANSFERRED. PT TAKEN BY GILBERTO ORTEGA PER WHEELCHAIR TO 305. MEDICAL CHART, MEDS, AND ALL PERSONAL BELONGINGS SENT WITH PT.
--- NOTE | 2019-09-08 11:19 | NUR ---
PT UPDATE: PT SEEMINGLY MORE ANXIOUS. MOTHER AT THE BEDSIDE PROVIDING MORAL SUPPORT. PLACED FAN AND COOL CLOTH ON PT FOR COMFORT. PT SOUNDING MORE STRIDOROUS, DISCUSSED STARTING BIPAP WITH RT. PT TO BE PLACED ON BIPAP PER RT LORRIE.
--- NOTE | 2019-09-08 17:23 | NUR ---
SHIFT SUMMARY: PATIENT TRANSFER FROM ICU-08 THIS SHIFT. PT A&O; CALM AND COOEPRATIVE WITH CARE. NO C/O PAIN SINCE ARRIVAL ON MEDICAL. PT SLEEPING T/O AFTERNOON. PT USES URINAL AT BEDSIDE. PT UP c 1-ASSIST. VSS. WCTM.
--- NOTE | 2019-09-08 21:36 | NUR ---
PATIENT AXO X 3. PATIENT TOOK MEDICATION WHOLE WITH WATER. COOPERATIVE WITH ASSESSMENT AND CARE. REPORTS WANTS TO GET TO BED EARLY. CALL LIGHT IN REACH.
--- NOTE | 2019-09-09 04:14 | NUR ---
SHIFT SUMMARY PATIENT HAD NO ACUTE CHANGES OBSERVED. AXO X 3 AND SBA TO BR. DENIES PAIN, SOB, AND N/V. NO SIGNS OF ANXIETY. SLEEPING AT SHIFT CHANGE. USES URINAL AT BEDSIDE. COOPERATIVE WITH CARE. VSS/AFBERILE. PIV REMAINS INTACT. PATIENT REPORTED HE WANTED TO GET TO SLEEP EARLY AFTER ASSESSMENT. CALL LIGHT IN REACH. BED IN LOWEST POSITION. WILL CONTINUE TO MONITOR UNTIL DAY SHIFT NURSE ASSUMES CARE.
[2019-09-09] MEDS ORDERED: CARV25 PO (11:05)
--- NOTE | 2019-09-09 11:06 | NUR ---
CALLED CARE MANAGEMENT ABOUT PT LACK OF PCP. PER DISCHARGE PLANNING PT HAS RECIEVED A NEW PT PACKET FROM [facility] AND HAS BEEN INSTRUCTED TO FOLLOW UP WITH [facility] AND TAKE NEW PT PACKET WITH HIM. PT IS AWARE OF THIS.
--- NOTE | 2019-09-09 11:30 | NUR ---
DISCHARGE NOTE- PT WAS GIVEN VERBAL AND WRITTEN DISCHARGE INSTRUCTIONS AND ACKNOWLEDGED UNDERSTANDING OF THEM. PT HAS NO S&S OF DISTRESS NOTED, DENIES PAIN. MEDICATIONS FAXED TO [facility] PER PT REQUEST. PT HAS NO PCP AND IS AWARE HE IS TO TAKE HIS NEW PT PACKET TO [facility] FOR HIS PCP FOLLOW UP.
--- NOTE | 2019-09-09 13:13 | NUR ---
Pt isdoing well, sitting in bed getting ready to go home and time today ,offered prayers for the pt.
--- NOTE | 2019-09-09 14:35 | NUR ---
PT STATED THAT HIS WALLET HAS GONE MISSING. PT HAS PHOTO COPIES OF ID AND INSURANCE CARDS. A SEARCH THROUGH PT BELONGINGS DID NOT REVEAL HIS WALLET. CALLED PT ADVOCATE, CALLED HOUSEKEEPING. GAUDENCIO WERE CONTACTED AND PT WALLET IS BEING SEARCHED FOR. PT ROOMATE NAME AND PHONE NUMBER ADDED TO PT CONTACT INFO SHEET TO BE SENT TO PT RECORDS FOR UPDATE.
== END 2019-09-09 14:00 | disposition home or self-care (01) | DRG 208 ==
LOC: ER 22:57 → ICUW 23:56 → ICUE 23:56 → MEDS 09-08 10:29 → ENPENDDIS 09-09 09:27 → MEDS 09-09 14:00
PROVIDERS: Emergency Medicine; Family Medicine; Internal Medicine Critical Care Medicine; Internal Medicine Pulmonary Disease; Nurse Practitioner Acute Care; Pharmacist; ADMIT Hospitalist
PROC: 0BH17EZ Insertion of Endotracheal Airway into Trachea, Via Natural or Artificial Opening (ICD-10-PCS; principal; 2019-09-01)
PROC: 5A1945Z Respiratory Ventilation, 24-96 Consecutive Hours (ICD-10-PCS; 2019-09-01)
DX: J96.01 Acute respiratory failure with hypoxia (principal); G92 Toxic encephalopathy; I21.A1 Myocardial infarction type 2; E87.2 Acidosis; J96.02 Acute respiratory failure with hypercapnia; F17.210 Nicotine dependence, cigarettes, uncomplicated; E87.6 Hypokalemia; R45.1 Restlessness and agitation; F32.9 Major depressive disorder, single episode, unspecified; I10 Essential (primary) hypertension; I16.0 Hypertensive urgency; T68.XXXA Hypothermia, initial encounter
CPT/HCPCS: 31500; 31720; 36415; 36600; 51702; 62270; 70450; 71045; 80047; 80048; 80053; 80202; 81001; 82550; 82553; 82803; 82945; 82947; 83605; 83735; 84100; 84132; 84157; 84443; 84484; 85007; 85014; 85025; 85027; 85610; 85730; 87040; 87070; 87205; 89051; 93005; 93010; 93306; 94002; 94003; 96365-59; 96366-59; 96367-59; 96375-59; 96376; 99291-25; 99292; C9113; G0480; J0330; J0713; J1630; J1650; J2060; J2250; J2704; J3010; J3370; J3475; J3480; J7030; J7050; J7070

== ENCOUNTER 2019-11-12 01:37 | Inpatient (IN) | payer MEDICARE, OTHER ==
[~2019-11-12] VITALS: Ht 190.5 cm; Wt 86.4 kg
[2019-11-12 03:22] LABS: BASOPHILS ABSOLUTE AUTO 0.05 K/mm3 (0.00-0.23); BASOPHILS PERCENT AUTO 1 % (0-2); EOSINOPHILS ABSOLUTE AUTO 0.21 K/mm3 (0.00-0.68); EOSINOPHILS PERCENT AUTO 2 % (0-6); Hematocrit 47.3 % (37.0-53.0); Hemoglobin 16.1 g/dL (13.5-17.5); IMMATURE GRAN ABSOLUTE AUTO 0.04 K/mm3 (0.00-0.10); IMMATURE GRAN PERCENT AUTO 0 % (0-1); LYMPHOCYTES ABSOLUTE AUTO 1.85 K/mm3 (0.84-5.20); LYMPHOCYTES PERCENT AUTO 17 % (21-46); MONOCYTES ABSOLUTE AUTO 0.65 K/mm3 (0.16-1.47); MONOCYTES PERCENT AUTO 6 % (4-13); Mean Corpuscular HGB 29.2 pg (26.0-34.0); Mean Corpuscular Volume 86 fL (80-100); Mean Platelet Volume 9.4 fL (9.1-12.4); NEUTROPHILS ABSOLUTE AUTO 7.96 K/mm3 (1.96-9.15); NEUTROPHILS PERCENT AUTO 74 % (41-73); Platelet Count 306 K/mm3 (150-400); RDW Coefficient Variation 12.5 % (11.7-14.2); RDW Standard Deviation 39.3 fL (35.1-46.3); Red Blood Cell Count 5.52 M/mm3 (4.30-5.90); White Blood Cell Count 10.76 K/mm3 (4.00-11.30)
[2019-11-12 03:44] LABS: Ethanol (Alcohol), Blood, Med <3 mg/dL; Salicylate 4.5 mg/dL (2.8-20.0)
[2019-11-12 03:51] LABS: Alanine Aminotransfer (ALT/SGP 41 U/L (12-78); Albumin, Blood 4.5 g/dL (3.4-5.0); Albumin/Globulin Ratio 1.1 (0.8-1.8); Alk Phos 89 U/L (50-136); Anion Gap 12 mmol/L (6-16); Aspartate Aminotrans (AST/SGOT 38 U/L (12-37); Blood Urea Nitrogen 59 mg/dL (8-24); Bun/Creatinine Ratio 32.2 (12.0-20.0); CO2, Blood 24 mmol/L (21-32); Chloride, Blood 107 mmol/L (98-108); Creatinine, Blood 1.83 mg/dL (0.60-1.20); Globulin, Blood 4.1 g/dL (2.2-4.0); Glomerular Filtration Rate 43 (60-); Glucose, Blood 81 mg/dL (70-99); Sodium, Blood 143 mmol/L (136-145); Total Protein, Blood 8.6 g/dL (6.4-8.2)
[2019-11-12 03:52] LABS: Acetaminophen, Random <2.0 ug/mL (10.0-30.0)
[2019-11-12 04:24] LABS: Magnesium, Blood 2.2 mg/dL (1.6-2.4)
[2019-11-12 05:00] LABS: Troponin I 0.125 ng/mL (0.000-0.040)
--- NOTE | 2019-11-12 08:40 | NUR ---
ARRIVAL TO ICU PT ARRIVES TO ICU VIA GURNEY WITH SECURITY. PT TRANSFERRED TO ICU BED BY STAFF, PT VERY DROWSY UPON ARRIVAL, AWAKENS BRIEFLY WITH TRANSFER TO BED AND BEGINS TO PULL ON LINES AND CORDS, AND CLENCH FISTS. PT. RESTLESS WITH FEET IN BED.NOT ANSWERING QUESTIONS, NOT FOLLOWING COMMANDS AT THIS TIME. PT. VSS UPON ARRIVAL, PLACED ON STRAIGHTENER HAND. PT UNABLE TO ANSWER FOR INTIAL SUICIDE SCREENING, HOWEVER PER REPORT FROM ER PT DENIED SI, AND HI UPON ARRIVAL. PER ORDER PRECEDEX GTT STARTED, TITRATING PER PROTOCOL. PT CURRENTLY DRESSED DOWN INTO BLUE PAPER CLOTHES, BED IN LOW POSITION, CALL LIGHT IN REACH.
--- NOTE | 2019-11-12 09:11 | NUR ---
CALL TO DR. CASEY TO CLARIFY IF PT IS HIGH RISK SI PER. DR. CASEY NO ORDER AT THIS TIME FOR HIGH RISK SI DUE TO PT INTIALLY DENYING IN THE ER. WILL REASSESS WHEN PT IS ABLE TO ANSWER QUESTIONS. PT IS ON A 2MD HOLD.
--- NOTE | 2019-11-12 13:24 | NUR ---
PHONE CALL WITH ROOMMATE PTS ROOMMATE CALLED TO INQUIRE ABOUT HOW PT IS. REPORTED THAT HE IS SLEEPING AND SNORING AT THIS TIME. ROOMMATE STATED THAT PT HAS BEEN ACTING STRANGE FOR PAST WEEK AND HAS NOT SLEPT OR EATEN AND DRANK FOR 4-5 DAYS. ROOMMATE STATES THAT PT WAS WITH HIM AT A PROCEDURE LAST WEEK AND FOLLOWING HIS PROCEDURE, WHEN THE ROOMMATE CAME OUT TO THE , HE FOUND THE PT SWEATING PROFUSELY WITH A RED FACE, AND LAUGHING HYSTERICALLY. ROOMMATE STATES THAT HE HAS BEEN AFRAID OF HIM AT HOME LATELY HE HAS BEEN "TEARING APART THEIR APARTMENT, UNPLUGGING EVERYTHING INCLUDING WASHER AND DRYER". ROOMMATE ALSO STATED THAT HE WAS SITTING ON THE COUCH ONE DAY THIS WEEK WHEN THE PT CAME RUNNING OUT TO THE LIVING ROOM NAKED AND DANCING IN FRONT OF THE TV FOR AWHILE. ROOMMATE ADDITIONALLY STATED THAT HE OVERHEAD THE PT IN THE BATHROOM SAYING A HIGH PITCH, CHILDISH VOICE, "WHY ARE YOU HURTING ME DADDY?". ROOMMATE STATES THAT HE IS CONCERNED FOR THE PT AND FELT UNSAFE WITH HIM AT THEIR APARTMENT. INFORMATION RELAYED TO PRIMARY RN.
--- NOTE | 2019-11-12 16:00 | NUR ---
PT REPOSITIONS SELF IN BED, REMAINS VERY DROWSY. PT. OCCASIONALLY KICKS LEGS AND ATTEMPTS TO PULL AT TUBES AND LINES. PT. OPENED EYES, PT LOOKS AT THIS RN WHEN ASKED, HOWEVER NON VERBAL AT THIS TIME, THEN FALLS BACK TO SLEEP. SITTER REMAINS AT BEDSIDE.
--- NOTE | 2019-11-12 17:18 | NUR ---
PT HAS STILL NOT VOIDED. BLADDER SCAN DONE, APPROX 480CC IN BLADDER VIA BLADDER SCAN
--- NOTE | 2019-11-12 18:01 | NUR ---
SHIFT SUMMARY PT. REMAINS DROWSY/ SLEEPING/ SNORING T/O SHIFT. WHEN PT DOES WAKEN, TREMORS NOTED, AND PT NON VERBAL AND NOT FOLLOWING COMMANDS. PT. REMAINS ON PRECEDEX GTT T/O SHIFT AT 0.2MCG/KG/MIN AND NS AT 100ML/HR. PT. HAS NOT VOIDED SINCE ARRIVAL TO ICU. BLADDER SCAN SHOWS APPROX 480CC IN BLADDER. VSS T/O SHIFT. BED IN LOW POSITION, SITTER AT BEDSIDE.
--- NOTE | 2019-11-12 22:00 | NUR ---
BLADDER SCAN SHOWED 628ML IN BLADDER. STRAIGHT CATH'D AND GOT 625ML OF DARK YELLOW URINE OUT.
[2019-11-12 22:01] LABS: Source, Urine Clean Catch
[2019-11-12 22:03] LABS: Bilirubin, Urine Neg (Neg); Blood, Urine Neg (Neg); Glucose Qualitative, Urine Neg (Neg); Ketones, Urine 3+ (Neg); Leukocyte Esterase, Urine Neg (Neg); Nitrite, Urine Neg (Neg); Protein, Urine 2+ (Neg); Specific Gravity, Urine 1.025 (1.003-1.022); Urobilinogen, Urine 1+ (Normal)
[2019-11-12 22:07] LABS: Appearance, Urine Hazy (Clear); Color, Urine Yellow (P-Yellow)
[2019-11-12 22:10] LABS: Bacteria Few /hpf; Red Blood Cells, Urine 0-2 /hpf (0-2); Squamous Epithelial Cells Rare /hpf (Few); White Blood Cells, Urine 0-2 /hpf (0-5)
[2019-11-12 22:11] LABS: Amorphous Light (0-Heavy); Mucus Light (0-Heavy)
[2019-11-12 22:14] LABS: U Amphetamine Screen Not Detected; U Barbituate Screen Not Detected; U Benzodiazapine Screen DETECTED; U Buprenorphine Screen Not Detected; U Cannabinoids Screen Not Detected; U Cocaine Screen Not Detected; U Methadone Screen Not Detected; U Methamphetamine Screen Not Detected; U Opiates Screen Not Detected; U Phencyclidine Screen Not Detected
[2019-11-12 22:15] LABS: U Oxycodone Screen Not Detected; U Propoxyphene Screen Not Detected
--- NOTE | 2019-11-12 22:41 | NUR ---
PT HAS BEEN LABILE SINCE BEGINING OF SHIFT. GOES FROM SEDATED TO AWAKE AND PULLING AT LINES AND MONITOR QUICKLY. PT DOES NOT FOLLOW COMMANDS AND IS NOT REDIRECTABLE. JUST STARES AT STAFF. WILL TRACK MOVEMENT ACROSS THE ROOM. WILL NOT ANSWER ANY QUESTIONS. CALLED GABRIEL SPEARS EARLIER DUE TO PT PULLING AT LINES AND UNABLE TO VOID SINCE ADMISSION WITH BLADDER SCAN OF 628ML. NEW ORDERS FOR IV ATIVAN AND IM ZYPREXA, AND RESTRAINTS. ALSO RECEIVED ORDER TO STRAIGHT CATH. WITH STRAIGHT CATH PT HAD 625ML OF DARK YELLOW URINE OUT. PT HAS 1:1 SITTER.
--- NOTE | 2019-11-13 01:45 | NUR ---
CALLED DR. HUGHES ABOUT HTN. NEW ORDERS FOR LABETOLOL IF SBP GREATER THAN 180.
[2019-11-13 04:17] LABS: Alanine Aminotransfer (ALT/SGP 32 U/L (12-78); Albumin, Blood 3.5 g/dL (3.4-5.0); Alk Phos 73 U/L (50-136); Anion Gap 9 mmol/L (6-16); Aspartate Aminotrans (AST/SGOT 26 U/L (12-37); Bilirubin, Total 1.1 mg/dL (0.1-1.0); Blood Urea Nitrogen 49 mg/dL (8-24); Bun/Creatinine Ratio 39.8 (12.0-20.0); CO2, Blood 23 mmol/L (21-32); Calcium, Blood 8.7 mg/dL (8.5-10.1); Chloride, Blood 117 mmol/L (98-108); Creatinine, Blood 1.23 mg/dL (0.60-1.20); Globulin, Blood 3.4 g/dL (2.2-4.0); Glomerular Filtration Rate >60 (60-); Glucose, Blood 70 mg/dL (70-99); Phosphorus, Blood 3.3 mg/dL (2.5-4.9); Potassium, Blood 3.1 mmol/L (3.5-5.5); Sodium, Blood 149 mmol/L (136-145); Total Protein, Blood 6.9 g/dL (6.4-8.2)
--- NOTE | 2019-11-13 05:46 | NUR ---
SUMMARY PT CONTINUES TO BE SOMNELENT ONE MOMENT THEN WILL BE AWAKE PULLING AT LINES THE NEXT. WILL NOT FOLLOW COMMANDS OR VERBALIZE JUST BLANKLY STARES AT STAFF. IN RESTRAINTS TO PROTECT LINES. CALLED DR. HUGHES THIS AM TO NOTIFY HIM OF POTASSIUM OF 3.1. PT IS ON PRECEDEX GTT. HAD TO STRAIGHT CATH ONE TIME DUE TO RETENTION. HAS BEEN HYPERTENSIVE. GAVE LABETOLOL ONE TIME PER ORDERS FOR SBP GREATER THAN 180. NO OTHER CHANGES.
--- NOTE | 2019-11-13 07:30 | NUR ---
ASSUMED CARE PT. REMAINS SLEEPING/ DROWSY. PT. REPOSITIONS SELF IN BED NEEDED. PT HAS ATTENDS IN PLACE, CDI. PT. REMAINS ON PRECEDEX GTT AT 0.7MCG/KG/MIN AND NS AT 100ML/HR. PT HYPERTENSIVE THIS AM; LABETALOL GIVEN THIS AM BY OFF GOING RN. PT. HAS POTASSIUM REPLACEMENT INFUSING. NADN. BED IN LOW POSITION, SITTER AT BEDSIDE.
--- NOTE | 2019-11-13 08:00 | NUR ---
DR. GARCIA AT BEDSIDE TALKED WITH DR. GARCIA REGARDING URINE RETENTION AND THE NEED FOR CONTINUING STRAIGHT CATH, ORDER FOR DELUCA PLACEMENT. ALSO DISCUSSED CONTINUED HYPERTENSION POST LABETALOL ADMIN, HYDRALAZINE ORDERED. PT. REMAINS IN BILAT WRIST RESTRAINTS, CONTINUES TO OCCASIONALLY KICK FEET AND THRASH ARMS IN BED. PT REMAINS NON VERBAL AND DOES NOT FOLLOW COMMANDS.
[2019-11-13 09:09] LABS: Source, Urine Catheter
[2019-11-13 09:12] LABS: Bilirubin, Urine Neg (Neg); Blood, Urine Neg (Neg); Glucose Qualitative, Urine Neg (Neg); Ketones, Urine 3+ (Neg); Leukocyte Esterase, Urine Neg (Neg); Nitrite, Urine Neg (Neg); Protein, Urine 2+ (Neg); Urobilinogen, Urine 1+ (Normal)
[2019-11-13 09:14] LABS: Appearance, Urine Clear (Clear); Color, Urine Yellow (P-Yellow)
[2019-11-13 09:20] LABS: Bacteria Few /hpf; Red Blood Cells, Urine 0-2 /hpf (0-2); Squamous Epithelial Cells Rare /hpf (Few)
[2019-11-13 09:21] LABS: Amorphous Light (0-Heavy); Mucus Light (0-Heavy)
[2019-11-13 09:22] LABS: Spermatozoa Few /hpf
--- NOTE | 2019-11-13 10:08 | NUR ---
PT EYES NOW OPEN AND LOOKING AT NURSES STATION PT TRACKING THIS RN I WALKED INTO THE ROOM. PT RESPONDING TO VERBAL STIMULI, STATES HE IS IN "[place]", WHEN ASKED HIS BIRTHDAY PT STATES "NO", WHEN ASKED IF HE DOESNT KNOW IT OR DOESNT WANT TO TELL HIS BIRTHDAY HE STATES "I DONT KNOW IT", WHEN ASKED IF PT REMEMBERED WHAT HAPPENED, HE STATES "I HAD SOME CIGARETTES AND THERE WAS A NETWORK ANNOUNCER THERE". PT UPDATED ON REASON FOR ADMIT AND BEHAVIORS, PT STATES "OKAY" WHEN ASKED IF PT HAS BEEN ABLE TO TAKE MEDICATION HE STATES "NO" HIS REASON WAS "I DONT HAVE ANY ANYMORE". PT NOTIFIED HIS BP IS HIGH , PT STATES "THATS NORMAL" PT VERY FLAT WHEN ANSWERING QUESTIONS. HANDS SHAKING RAPIDLY AND PT SHAKING FEET. WHEN ASKED IF PT WAS ABLE TO STOP MOVING HANDS AND HE FEET HE STATES "SOMETIMES" THEN HOLDS EXTREM STILL. PT. NOTIFIED OF REASON FOR RESTRAINTS, EXPLAINED THAT I COULD TAKE THE RESTRAINTS OFF BUT HE CAN NOT PULL ON CORDS AND LINES PT STATES "NO THATS OKAY", WHEN ASKED AGAIN DO YOU WANT ME TO TAKE THE RESTRAINTS OFF PT STATES "NO I DONT THINK SO". PT. THEN BEGINS TO TREMOR HANDS AND FEET RAPIDLY. ASKED PT IF HE WAS HUNGRY PT STATES "NO", ASKED PT IF HE WAS THIRSTY HE STATES "YES, ALOT". NOTIFIED PT I WOULD GET HIM SOME WATER. WHEN ARRIVING BACK TO ROOM MINUTES LATER PT SOMNOLENT AGAIN, NOT ANSWERING QUESTIONS.
--- NOTE | 2019-11-13 10:25 | NUR ---
COMPASS PERSONAL IN TO SEE PT PT. NOT OPENING EYES VERY SLOW TO RESPOND. ONLY ANSWERING SOME QUESTIONS. THEN STOPS ANWERING QUESTIONS. PLANS TO REASSESS TOMORROW.
--- NOTE | 2019-11-13 12:06 | NUR ---
UPDATE PT. NOW NOT RESPONDING TO VERBAL STIMULI AGAIN. HE IS THRASHING HIS LEGS AND ARMS IN BED WITH EYES CLOSED, DOES NOT OPEN EYES TO VERBAL STIMULI. DOES NOT CALM WITH REORIENTATION. PRECEDEX GTT REMAINS AT 0.7MCG/KG/MIN.
--- NOTE | 2019-11-13 12:30 | NUR ---
ZYPREXA ADMIN PT CONTINUES TO THRASH IN BED, NOT REDIRECTABLE, PULLING HARD ON RESTRAINTS AND KICKING LEGS. ZYPREXA ADMIN IM PER DR. PUENTE. POST ADMIN PT CALMED AND IS NOW RESTING QUIETLY, RR EVEN UNLABORED. VSS
--- NOTE | 2019-11-13 15:56 | NUR ---
PT CALLED FOR [employer] POST CONVERSATION REGARDING DECISION MAKING/POA WITH CORY AND TYRESE- SEE THEIR NOTE FOR CONVERSATION DETAILS. PT BROTHER, SONE, AND DAUGHTER UPDATED ON CONVERSATION. PT TO REMAIN DNR STATUS, FAMILY AWARE THAT SHE MAY BE IN TO VISIT [place].
--- NOTE | 2019-11-13 22:12 | NUR ---
START OF SHIFT: REPORT FROM MAGALYS WOLFE. PT ASLEEP LYING IN BED. PT SLIGHTLY OPENS EYES TO VOICE. VS C/ SYSTOLIC BP IN THE 170'S WHICH HAS BEEN ABOUT HIS NORM SINCE IN ICU. DURING FULL ASSESSEMENT PT AWAKENED ENOUGH TO ASK FOR A DRINK OF WATER. PT THEN WENT OPOSSUM-LIKE BUT FLINCHES WHEN FACE IS TOUCHED WITH THE TEMPANIC. PT THEN WOULD OPEN HIS EYES TO WATCH TV WHEN THIS RN MOVED AWAY FROM THE BED. A FEW TIMES OF THIS PT LEFT HIS EYES OPEN AND WOULD FOLLOW SIMPLE COMMANDS. PT ORIENTED TO SELF, TOWN, AND ROOMMATES'S NAME BUT STATED THAT HIS ROOMMATE WAS . WHEN TOLD THAT HIS ROOMMATE HAD CALLED TODAY AND STATED THAT HE MISSED THE PT AND THAT THE PT ALWAYS COOKED FOR HIM (ERASMO), PT STATED, "I DON'T COOK. SHE (NAMED A GIRL'S NAME) COOKS". DURING AN ATTENDS CHANGE AND REPOSITIONING, PT WOULD HELP. PT LATER DEMANDED A DRINK OF WATER AND WHEN DRUNK ALL OF THE WATER, INSISTED ON EATING THE ICE BUT WOULDN'T, HAD TO DISTRACT PT TO GET THE CUP REMOVED FROM PT HAND AND TO REPLACE SWR. PRECEDEX: TRIED TO TITRATE DOWN BUT LESS THAN 0.7 mcg, PT WOULD GET AGITATED, RESTLESS, AND PULLING AT LINES AND CATHETER. PT CURRENTLY AWAKE STARING AT THE TV WITH REPETITIVE R HAND MOVEMENT, BUT OTHERWISE QUIET AND NO HARM TO SELF AND NOT PULLING AT RESTRAINTS.
--- NOTE | 2019-11-14 01:46 | NUR ---
PT SLEEPING SOUNDLY. VSS. PRECEDEX TITRATED DOWN TO 0.5 mcg.
--- NOTE | 2019-11-14 03:29 | NUR ---
AGITATION: PRECEDEX TITRATED TO 4mcg WHILE PT SLEEPING. PT AWAKENED AND WAS ORIENTED TO PERSON, STATE, PRESIDENT, AND MONTH, HOWEVER, PT BECAME AGITATED WHEN NOT ALLOWED TO WALK OUT TO SMOKE. WITH FURTHER AGITATION WHEN TOLD COULDN'T HAVE HIS BAGS OF BELONGINGS. PT THEN BECAME RESTLESS MAKING HIS REPETITIOUS EXTREMITY MOTIONS. PRECEDEX WAS INCREASED FOR PT AGIATION. WILL TRY AND TITRATE BACK DOWN FOR PT ABLE TO SPEAK TO TELE-PSYCH.
[2019-11-14 05:35] LABS: BASOPHILS ABSOLUTE AUTO 0.04 K/mm3 (0.00-0.23); BASOPHILS PERCENT AUTO 1 % (0-2); EOSINOPHILS ABSOLUTE AUTO 0.46 K/mm3 (0.00-0.68); EOSINOPHILS PERCENT AUTO 6 % (0-6); Hematocrit 41.5 % (37.0-53.0); IMMATURE GRAN ABSOLUTE AUTO 0.01 K/mm3 (0.00-0.10); IMMATURE GRAN PERCENT AUTO 0 % (0-1); LYMPHOCYTES ABSOLUTE AUTO 2.65 K/mm3 (0.84-5.20); LYMPHOCYTES PERCENT AUTO 36 % (21-46); MONOCYTES ABSOLUTE AUTO 0.43 K/mm3 (0.16-1.47); MONOCYTES PERCENT AUTO 6 % (4-13); Mean Corpuscular HGB 29.4 pg (26.0-34.0); Mean Corpuscular HGB Conc 33.7 g/dL (31.5-36.5); Mean Corpuscular Volume 87 fL (80-100); Mean Platelet Volume 9.6 fL (9.1-12.4); NEUTROPHILS ABSOLUTE AUTO 3.76 K/mm3 (1.96-9.15); NEUTROPHILS PERCENT AUTO 51 % (41-73); Platelet Count 228 K/mm3 (150-400); RDW Coefficient Variation 12.7 % (11.7-14.2); RDW Standard Deviation 40.4 fL (35.1-46.3); Red Blood Cell Count 4.76 M/mm3 (4.30-5.90); White Blood Cell Count 7.35 K/mm3 (4.00-11.30)
[2019-11-14 05:58] LABS: Alanine Aminotransfer (ALT/SGP 32 U/L (12-78); Albumin, Blood 3.4 g/dL (3.4-5.0); Albumin/Globulin Ratio 0.9 (0.8-1.8); Alk Phos 74 U/L (50-136); Anion Gap 8 mmol/L (6-16); Aspartate Aminotrans (AST/SGOT 23 U/L (12-37); Bilirubin, Total 0.9 mg/dL (0.1-1.0); Blood Urea Nitrogen 27 mg/dL (8-24); Bun/Creatinine Ratio 33.7 (12.0-20.0); CO2, Blood 23 mmol/L (21-32); Calcium, Blood 8.8 mg/dL (8.5-10.1); Chloride, Blood 115 mmol/L (98-108); Globulin, Blood 3.6 g/dL (2.2-4.0); Glomerular Filtration Rate >60 (60-); Glucose, Blood 74 mg/dL (70-99); Potassium, Blood 3.7 mmol/L (3.5-5.5); Sodium, Blood 146 mmol/L (136-145)
--- NOTE | 2019-11-14 08:07 | NUR ---
AM ASSESSMENT: BEDSIDE REPORT REC'D. PT REMAINS 1:1 SITTER/ON CAMERA FOR HIGH RISK SUICIDE. SITTER REPORTS PT WAS JUST ANSWERING YES/NO QUESTIONS FOR HER, HOWEVER, WHEN THIS RN ENTERED PT HAD RENTLESS FORWARD STARING GAZE. WOULD NOT RESPOND TO QUESTIONS, WOULD NOT FOLLOW DIRECTION. DOES NOT TRACK WITH EYES, AND LE'S WERE CONTINUOUSLY KICKING. ONLY VERBAL HEARD FROM PT IS WHEN A TEMP WAS TAKEN. AFTER TELLING THE PT WHAT THIS RN WAS DOING, PT STARTED TO SAY, "NO, NO, NO." REPEATEDLY. LUNGS ARE CLEAR T/O BILATERALLY. SATS HIGH 90% RANGE ON RA. HR REGULAR, SR 70'S RANGE. NS @ 100ML/HR. PRECEDEX INCREASED TO 0.7MCG/KG/MIN FOR INCREASED AGGITATION/RESTLESSNESS. ABD SOFT/ROUN/NON-TENDER. BT'S ACTIVE X4 QAUDS. PT ON CLEAR LIQUIDS, HOWEVER, UNABLE TO GET PT TO ATTEMPT TO EAT. JUST CONTINUES W/ FORWARD STARING GAZE. ATTENGS IN PLACE FOR INCONTINENCE.
--- NOTE | 2019-11-14 11:29 | NUR ---
PT UPDATE: PT REMAINS RESTLESS. CONSTANTLY KICKING BOTH LE'S, AT TIMES UE'S CONSTANTLY MOVING. PT WITH CONT FORWARD STARING GAZE. WILL NOT ANSWER ANY QUESTIONS. OCASSIONALLY PT WILL ANSWER YES/NO QUESTIONS FOR SITTERS. PT GIVEN IM ZYPREXIA, PRECEDEX @ 0.7MCG/KG/MIN. PT GIVEN LEBETOLOL IVP FOR ELEVATED BP HYDRALAZINE NOT VERY HELPFUL IN REDUCING BP.
--- NOTE | 2019-11-14 18:02 | NUR ---
SHIFT SUMMARY: PT NEURO/PYSCH STATUS HAS IMPROVED T/O SHIFT. INITIALLY PT ONLY HAD A CONTINUOUS, FORWARD STARING GAZE AND WOULD NOT ANSWER ANY QUESTIONS OR FOLLOW ANY COMMANDS, HOWEVER, WHILE BATHING PT, HE WOULD TRACT W/ EYES ANSWER SIMPLE YES/NO QUESTIONS, AND FOLLOW SIMPLE COMMANDS. PT REMAINS IN BILATERAL WRIST RESTRAINTS, HE DOES AT TIMES ATTEMPT TO PULL AT VITAL LINES. PT REMAINS ON TITRATED PRECEDEX TO MANAGE AGGITATION/RESTLESSNESS. LUNGS ARE CLEAR T/O BILATERALLY. SATS >90% ON RA. HR REGULAR, SR-70'S RANGE. ABD SOFT/LARGE/NON-TENDER. BT'S ACTIVE X4 QAUDS. PT HAS HAD VERY POOR APPETITE TODAY AND HAS DECLINED MOST EVERYTHING OFFERED TO HIM. HE HAS INCREASED PO INTAKE THIS AFTERNOON AND STARTED ASKING FOR FLUIDS.
--- NOTE | 2019-11-14 19:19 | NUR ---
REPORTED OFF TO YANETH DORSEY WHOM IS NOW ASSUMING CARE OF THE PT.
--- NOTE | 2019-11-14 20:56 | NUR ---
START OF SHIFT: REPORT FROM ADAM WOLFE. PT SLEEPING BUT AWAKENS EASILY TO VOICE. PRECEDEX AT THAT TIME 0.4 mcg AND IS NOW TITRATED OFF DUE TO BRADYCARDIA WITH HR INTO THE 40'S AND PT CALM AND COOPERATIVE. PT ORIENTED TO PERSON, TOWN, MONTH, AND ROOMMATE'S NAME. PT RECALL OF EVENT, STATED, "I REMEMBER GOING OUTSIDE TO HAVE A CIGARETTE AND THEN WENT BACK IN. I WAS UP IN THE AIR. I WENT BACK OUTSIDE TO HAVE A CIGARETTE AND POLICE CAME. I WAS UP IN THE AIR." PT FOLLOWED COMMANDS DURING ASSESSMENT. BY THIS TIME PRECEDEX HAD BEEN OFF FOR APPRX TEN MINUTES. PT WOULD FALL ASLEEP BUT THEN OPEN EYES TO HIS NAME AND WAS COOPERATIVE. ORAL ASSESSMENT, PT WITH RED DRY SCALY TONGUE WITH NO CAST NOTED TO BACK OF THROAT. PT GIVEN SIPS OF WATER BUT WOULD SQUINT AFTER SIPPING. PT DENIED HAVING A SORE THROAT. PT TEMP 98.0. PT CONTINUES BP SYSTOLICS IN 170'S. HYDRALAZINE CONTNUES ON PT'S EMAR. PT FALLS ASLEEP IMMEDIATELY WHEN NOT INTERACTED WITH. RESTRAINTS OFF AT 2039, PT SO FAR CALM AND SLEEPING NOT REACHING FOR CORDS OR TUBES.
--- NOTE | 2019-11-15 00:18 | NUR ---
PT ESCALATION: PT HAS ESCALATED OVER PAST COUPLE HOURS. PT HAS PROGRESSIVELY GONE BACK INTO A HOLLOW SORT OF STATE WHERE HE LOOKS STRAIGHT AHEAD NOT FOCUSING OR TRACKING. CONG. PT WITH PROGRESSIVELY POUNDING ON BED WITH HANDS AND HEART RATE UP TO 101. PT WITH INCREASED HYPERTENSION BUT HARD TO TELL HOW ACCURATE WITH PT AGITAION, HOWEVER, TREATED PER ORDERS FOR HYDRALAZINE AND LABETALOL. PT MEDICATED WITH HALDOL, PRECEDEX gtt TITRATED TO 0.7 mcg, AND ZYPREXA 5mg IM. PT CURRENTLY REDIRECTIONAL WITH HAND HOLD AND FOCUSSING VISION TO RN WHILE BEING TALKED TO. SITTER REMAINS AT DOORWAY. WILL CONTINUE TO MONITOR.
--- NOTE | 2019-11-15 01:31 | NUR ---
UPATE: PT RESTING QUIETLY WITH EYES CLOSED. VSS. BP 135/68, HR 60'S, RR 22, SATS 94% ON RA. PT OCCASIONALLY SNORING. PT AWAKENED JUST NOW AND ASKED IN FULL CLEAR SENTENCE, "CAN I HAVE A BLANKET PLEASE", THEN SAID, "THANK YOU". PT TURNING SELF IN BED WITHOUT DIFFICULTY. PT NOT PULLING AT LINES OR TUBES. PT CALM AND QUIET. WILL CONTINUE TO MONITOR.
[2019-11-15 03:46] LABS: Alanine Aminotransfer (ALT/SGP 28 U/L (12-78); Albumin, Blood 3.3 g/dL (3.4-5.0); Albumin/Globulin Ratio 0.9 (0.8-1.8); Alk Phos 76 U/L (50-136); Anion Gap 10 mmol/L (6-16); Aspartate Aminotrans (AST/SGOT 24 U/L (12-37); Bilirubin, Total 0.9 mg/dL (0.1-1.0); Blood Urea Nitrogen 15 mg/dL (8-24); Bun/Creatinine Ratio 21.9 (12.0-20.0); CO2, Blood 22 mmol/L (21-32); Calcium, Blood 8.6 mg/dL (8.5-10.1); Chloride, Blood 111 mmol/L (98-108); Creatinine, Blood 0.68 mg/dL (0.60-1.20); Globulin, Blood 3.5 g/dL (2.2-4.0); Glomerular Filtration Rate >60 (60-); Glucose, Blood 62 mg/dL (70-99); Potassium, Blood 2.9 mmol/L (3.5-5.5); Sodium, Blood 143 mmol/L (136-145); Total Protein, Blood 6.8 g/dL (6.4-8.2)
--- NOTE | 2019-11-15 05:12 | NUR ---
HOSPITALIST NOTIFIED RE: KCL OF 2.9. POTASSIUM CH 40 mEq IV NOW ORDERED.
--- NOTE | 2019-11-15 06:41 | NUR ---
PT SLOWLY AWAKENED RESTLESS THEN AGITATION. PT BEGAN POUNDING ON THE BED. PT BROUGHT TO SUPINE POSITION FOR ATTENDS CHECK BUT REFUSED TO TURN FOR BUTTOCK ASSESSMENT. PT HOWEVER TOLERATED CATHETER CARE. PT REFUSED BEBETO SHAKE THAT HE HAD REQUESTED, PT ALSO REFUSED SIPS OF WATER. PT INFORMED OF BLOOD SUGAR BEING LOW AND WAS TOLD THAT HIS BG WAS 61. PT STATED, "THAT'S NORMAL". PT CONTINUED TO REFUSE LIQUIDS. AFTER, PT BEGAN TO WAVE ARMS IN A HAMMARING MOTION AND TAPPING THE FOOT OF THE BED. PT PROGRESSED IN INTESITY AND BECAME UNCOSOLEABLE. PRECEDEX INCREASED AND ZYPREXA GIVEN. AFTER PT CALMED, PRECEDEX TITRATED DOWN AND IS CURRENTLY AT 2mcg. SITTER CONTINUES AT DOOR OPENING. WILL CONTINUE TO MONTIOR AND REPORT OFF TO ONCOMING RN.
--- NOTE | 2019-11-15 08:00 | NUR ---
INITIAL ASSESMENT PT AROUSABLE TO VOICE AND REMAINS ON PRECEDEX, WILL FOLLOW COMMANDS AND INTERACT ALERT AND ORIENT TO PERSON PLACE AND DISORIENT TO CIRCUMSTANCE AND DATE. DENIES PAIN AND WILL WEAN PRECEDEX TOLERATED. VSS, AFEBRILE AND PAPL PULSES T/O IN SR. RA WITH SATS IN THE HIGH TO MID 90S. CLEARS AND ADVANCING TOLERATED, POOR PO INTAKE NO N/V NO BM ABD ROUND OBESE AND HYPOTONIC BTS. UO ADEQUATE VIA DELUCA. SKIN INTACT. WILL CONT TO MONITOR
--- NOTE | 2019-11-15 10:49 | NUR ---
Pt allowed me to give him a warm soapy wash cloth. He is washing his arms, chest, head and face. Doesn't want my help. He is talking more as the day goes on. Have to remind him not to sractch at his IV's or foly. He is easy to redirect. Say ok, I don't know and thank you to me.
--- NOTE | 2019-11-15 13:45 | NUR ---
BEDSIDE FOR EVAL. PRECEDEX OFF, VSS, RA, ENCOURAGING PO INTAKE. MD ADVISED RISERDAL AT HS. 1:1 SITTERM TO REMAINS AND REASSES NEED IN AM. WILL CONT TO MONITOR
--- NOTE | 2019-11-15 16:19 | NUR ---
pt sat up and asked for something to eat. He picked a sandwich and water. As pt was eating he began to cry. When asked what was wrong he just shook his head no and kept eating. Pt able to feed self. RN notifed.
--- NOTE | 2019-11-15 21:30 | NUR ---
[place] of Care: Care assumed at 1900hr. Patient sleeping, easily roused to verbal stimuli. Oriented to self, place, date, but confused to reason for admission. Denies suicidal and homicidal ideations at this time. Calm and cooperative with staff, but appears withdrawn. HR shows NSR in the 70's-80's, but BP elevated (systolic 180's-200). PRN hydralazine given and contacted Rosemarie Martinez CT MANAGER. Rosemarie then wrote for patient's home/routine htn medications, as the patient had note been receiving these meds and had been given several doses of prn hydralazine. Routine Coreg and Clonidine given. Systolic BP remained 180's at this time, will continue to monitor for effect of medications. Peripheral IV's x2 patent and intact. Scherer cath patent and intact, draining clear yellow urine. 2MD hold remains in place, and one-to-one sitter present at all times. Will continue to monitor for pain, safety, comfort.
[2019-11-16 03:47] LABS: Anion Gap 6 mmol/L (6-16); Blood Urea Nitrogen 11 mg/dL (8-24); Bun/Creatinine Ratio 16.2 (12.0-20.0); CO2, Blood 24 mmol/L (21-32); Calcium, Blood 8.6 mg/dL (8.5-10.1); Chloride, Blood 111 mmol/L (98-108); Creatinine, Blood 0.68 mg/dL (0.60-1.20); Glomerular Filtration Rate >60 (60-); Glucose, Blood 87 mg/dL (70-99); Potassium, Blood 3.2 mmol/L (3.5-5.5); Sodium, Blood 141 mmol/L (136-145)
--- NOTE | 2019-11-16 10:30 | NUR ---
PT AWAKE IN BED, ALERT AND ORIENTED X3. PT COOPERATIVE W APPROPRIATE CONVERSATION. PT W FLAT AFFECT; SLOW TO RESPOND/REACT; MAY BE R/T PSYCH MEDS. DR CARMEN IN THIS AM; PT'S STATUS CHANGED TO MED W/O TELE. PSYCH TO DETERMINE SUICIDE PRECAUTIONS. 1:1 SITTER AT BEDSIDE. DELUCA CATHETER TO BE DC'D.
--- NOTE | 2019-11-16 11:50 | NUR ---
DR CLEARYUFF IN TO SEE PT. ALL SUICIDE PRECAUTIONS DISCONTINUED. PT OKAY TO BE DC'D HOME IF OKAY WITH DR CARMEN. DR CARMEN CALLED AND GIVEN UPDATE. PLAN IS TO DISCHARGE PT HOME TODAY AFTER [facility] INFUSION COMPLETE.
--- NOTE | 2019-11-16 12:19 | NUR ---
YOSI SOSA'D W/O DIFFICULTY. PT OOB TO CHAIR; TOLERATED WELL. JODIE RN CALLED TO ASSIST W DISCHARGE. OKAY FOR PT TO BE DISCHARGED TO SAME HOME. JODIE IS WORKING ON TRANSPORTATION HOME.
--- NOTE | 2019-11-16 14:52 | NUR ---
PT DOING WELL UP IN CHAIR. SBA TO TOILET. PT ABLE TO VOID W/O DIFFICULTY. FOLLOW UP APPOINTMENT MADE WITH NEW PCP DR FAMILIA HANKINS WITH [facility]. [facility] FAXED INTO [facility]; PHONE CALL MADE TO DAVE THAT [facility] WAS PROCESSING PRESCRIPTION.
--- NOTE | 2019-11-16 15:24 | NUR ---
VERBAL AND WRITTEN DC INFORMATION GIVEN TO PT WITH CLEAR UNDERSTANDING. PT DRESSED AND AWAITING RIDE HOME.
== END 2019-11-16 15:55 | disposition home or self-care (01) | DRG 91 ==
LOC: ER 01:37 → EOR 01:38 → ER 01:38 → EOR 05:52 → ICUE 05:52 → ERHOLD 07:48 → ICUE 08:30
PROVIDERS: Hospitalist; Internal Medicine; ADMIT Emergency Medicine
DX: G92 Toxic encephalopathy (principal); I21.A1 Myocardial infarction type 2; I50.22 Chronic systolic (congestive) heart failure; N17.9 Acute kidney failure, unspecified; I16.1 Hypertensive emergency; I42.9 Cardiomyopathy, unspecified; E87.0 Hyperosmolality and hypernatremia; F20.9 Schizophrenia, unspecified; Z86.73 Personal history of transient ischemic attack (TIA), and cerebral infarction without residual deficits; R33.9 Retention of urine, unspecified; E87.6 Hypokalemia; E86.0 Dehydration; Z78.1 Physical restraint status; F17.200 Nicotine dependence, unspecified, uncomplicated
CPT/HCPCS: 36415; 51702; 70450; 80048; 80053; 81001; 82550; 83735; 83880; 84100; 84484; 85025; 93005; 93010; 96361; 96365; 96366; 96372; 96372-59; 96375; 96376; 99285-25; G0378; G0480; J0360; J1630; J1650; J2060; J3480; J3486; J7030

== ENCOUNTER 2020-03-27 06:03 | Day surgery (SDC) | payer MEDICARE, OTHER ==
[~2020-03-27] VITALS: Ht 180.3 cm; Wt 127.0 kg
[~2020-03-27 06:03] MED LIST changes: +ATOR20 PO; +Aspir 8181 MG PO; +ENTRESTO 49 MG1 EACH PO; +SERT100 PO
--- NOTE | 2020-03-27 09:10 | NUR ---
PT TO RECOVERY ROOM POST PROCEDURE. PT DROWSY, BUT ANSWERING QUESTIONS APPROPRIATELY, DENIES CHEST PAIN/PRESSURE POST PROCEDURE. MONITOR SR 70'S, B/P 128/70, AFEBRILE, SPO2 94-95% RA. R RADIAL SITE NO SWELLING/HEMATOMA, TR BAND IN PLACE 10 CC AIR INSTILLED AT 0843. R AC (VENOUS) SITE NO SWELLING/HEMATOMA, AKANKSHA AND TEGADERM DRSG INTACT. PT TAKING SIPS OF JUICE WITHOUT PROBLEM.
--- NOTE | 2020-03-27 11:50 | NUR ---
PT AMB TO THE BATHROOM, GAIT STEADY, SITE UNCHANGED WITH ACTIVITY.
--- NOTE | 2020-03-27 12:05 | NUR ---
PT DRESSED SELF WITHOUT ISSUE, SITE UNCHANGED; IV REMOVED-CANNULA INTACT. TR BAND REMOVED, CLOTH DOT AND WRIST IMMOBILIZER PLACED.
--- NOTE | 2020-03-27 12:15 | NUR ---
PT RECEIVED DISCHARGE INSTRUCTIONS, SITE MANAGEMENT, MED LIST AND AFTER CARE INSTRUCTIONS; VERBALIZED GOOD UNDERSTANDING. PT READY TO DISCHARGE, ATTEMPTING TO CONTACT RIDE.
--- NOTE | 2020-03-27 13:20 | NUR ---
PT UNABLE TO CONTACT RIDE, [employer] CONTACTED. PT LEFT DEPARTMENT VIA W/C, CONDITION STABLE.
== END 2020-03-27 13:20 | disposition home or self-care (01) ==
LOC: MHTC 06:03
PROC: B2111ZZ Fluoroscopy of Multiple Coronary Arteries using Low Osmolar Contrast (ICD-10-PCS; principal; 2020-03-27)
PROC: 4A023N7 Measurement of Cardiac Sampling and Pressure, Left Heart, Percutaneous Approach (ICD-10-PCS; principal; 2020-03-27)
DX: I42.0 Dilated cardiomyopathy (principal); I77.819 Aortic ectasia, unspecified site; I11.0 Hypertensive heart disease with heart failure; I50.9 Heart failure, unspecified; E78.5 Hyperlipidemia, unspecified; E11.9 Type 2 diabetes mellitus without complications; E66.01 Morbid (severe) obesity due to excess calories; F17.210 Nicotine dependence, cigarettes, uncomplicated; Z79.899 Other long term (current) drug therapy
CPT/HCPCS: 93460; 99152; 99153; C1769; C1894; J0360; J1644; J2250; J3010; J7030; Q9967

== ENCOUNTER 2022-03-29 22:45 | Emergency (ER) | payer MEDICARE, OTHER ==
[~2022-03-29] VITALS: Ht 180.3 cm; Wt 123.4 kg
[2022-03-30] MEDS ORDERED: IBU800 MG PO (00:05)
== END 2022-03-30 00:27 | disposition home or self-care (01) ==
LOC: ER 22:45
DX: M25.561 Pain in right knee (principal); M25.562 Pain in left knee; I50.22 Chronic systolic (congestive) heart failure; F15.10 Other stimulant abuse, uncomplicated; F10.10 Alcohol abuse, uncomplicated; F20.9 Schizophrenia, unspecified; Z86.73 Personal history of transient ischemic attack (TIA), and cerebral infarction without residual deficits; Z79.899 Other long term (current) drug therapy; Z79.82 Long term (current) use of aspirin
CPT/HCPCS: 73562-RT; A9270

== ENCOUNTER → 2024-01-07 | Outpatient (CLI) | payer MEDICARE, OTHER ==
[~2024-01-07] MED LIST changes: +IBU800 MG PO
[2024-01-07 13:33] LABS: BASOPHILS ABSOLUTE AUTO 0.04 K/mm3 (0.00-0.23); BASOPHILS PERCENT AUTO 1 % (0-2); EOSINOPHILS PERCENT AUTO 2 % (0-6); Hematocrit 48.7 % (37.0-53.0); Hemoglobin 16.5 g/dL (13.5-17.5); IMMATURE GRAN ABSOLUTE AUTO 0.02 K/mm3 (0.00-0.10); IMMATURE GRAN PERCENT AUTO 0 % (0-1); LYMPHOCYTES PERCENT AUTO 20 % (21-46); MONOCYTES ABSOLUTE AUTO 0.48 K/mm3 (0.16-1.47); MONOCYTES PERCENT AUTO 6 % (4-13); Mean Corpuscular HGB 29.1 pg (26.0-34.0); Mean Corpuscular HGB Conc 33.9 g/dL (31.5-36.5); Mean Corpuscular Volume 86 fL (80-100); Mean Platelet Volume 9.1 fL (9.1-12.4); NEUTROPHILS PERCENT AUTO 72 % (41-73); Platelet Count 209 K/mm3 (150-400); RDW Coefficient Variation 12.5 % (11.7-14.2); Red Blood Cell Count 5.67 M/mm3 (4.30-5.90); White Blood Cell Count 8.64 K/mm3 (4.00-11.30)
[2024-01-07 13:52] LABS: Albumin, Blood 4.1 g/dL (3.4-5.0); Bilirubin, Total 0.5 mg/dL (0.1-1.0); Bun/Creatinine Ratio 14.7 (12.0-20.0); Calcium, Blood 9.2 mg/dL (8.5-10.1); Creatinine, Blood 1.09 mg/dL (0.60-1.20); Globulin, Blood 4.2 g/dL (2.2-4.0); Potassium, Blood 3.5 mmol/L (3.5-5.5); Thyroid Stimulating Hormone 1.869 uIU/mL (0.360-4.800); Total Protein, Blood 8.3 g/dL (6.4-8.2)
== END | disposition home or self-care (01) ==
LOC: LAB SHORT 13:25
PROVIDERS: Chiropractor
DX: R41.82 Altered mental status, unspecified (principal); R53.83 Other fatigue; Z79.899 Other long term (current) drug therapy
CPT/HCPCS: 80053; 82607; 82746; 84443; 85025

== ENCOUNTER 2024-06-01 19:52 | Emergency (ER) | payer MEDICARE, OTHER ==
[~2024-06-01] VITALS: Ht 182.9 cm; Wt 113.4 kg
[2024-06-01] MEDS ORDERED: LORazepam 2 MG/ML 1ML Injection IV ONE (20:30)
[2024-06-01] MEDS ORDERED: Glucagon 1 MG/KIT VIAL IV ONE (20:30)
[2024-06-01] MEDS ORDERED: Nitroglycerin 1 INCH/GM PKT TOP ONE (20:30)
[2024-06-01 23:34] VITALS: BP 122/89
== END 2024-06-01 23:35 | disposition home or self-care (01) ==
LOC: ER 19:52
DX: T18.128A Food in esophagus causing other injury, initial encounter (principal); I50.22 Chronic systolic (congestive) heart failure; F17.200 Nicotine dependence, unspecified, uncomplicated; W44.F3XA Food entering into or through a natural orifice, initial encounter; Z79.82 Long term (current) use of aspirin; Z79.899 Other long term (current) drug therapy; Z86.73 Personal history of transient ischemic attack (TIA), and cerebral infarction without residual deficits
CPT/HCPCS: 93005; 93010; 96374; 99284-25; A9270; J1610; J2060

== ENCOUNTER → 2025-01-05 | Outpatient (CLI) | payer MEDICARE, OTHER ==
[2025-01-05 13:54] LABS: BASOPHILS ABSOLUTE AUTO 0.02 K/mm3 (0.00-0.23); BASOPHILS PERCENT AUTO 0 % (0-2); EOSINOPHILS ABSOLUTE AUTO 0.02 K/mm3 (0.00-0.68); EOSINOPHILS PERCENT AUTO 0 % (0-6); Hematocrit 49.2 % (37.0-53.0); Hemoglobin 16.9 g/dL (13.5-17.5); IMMATURE GRAN ABSOLUTE AUTO 0.07 K/mm3 (0.00-0.10); IMMATURE GRAN PERCENT AUTO 1 % (0-1); LYMPHOCYTES ABSOLUTE AUTO 0.72 K/mm3 (0.84-5.20); LYMPHOCYTES PERCENT AUTO 5 % (21-46); MONOCYTES ABSOLUTE AUTO 0.49 K/mm3 (0.16-1.47); MONOCYTES PERCENT AUTO 4 % (4-13); Mean Corpuscular HGB 29.2 pg (26.0-34.0); Mean Corpuscular HGB Conc 34.3 g/dL (31.5-36.5); Mean Corpuscular Volume 85 fL (80-100); Mean Platelet Volume 8.3 fL (9.1-12.4); NEUTROPHILS ABSOLUTE AUTO 12.82 K/mm3 (1.96-9.15); NEUTROPHILS PERCENT AUTO 91 % (41-73); Platelet Count 224 K/mm3 (150-400); RDW Coefficient Variation 13.3 % (11.7-14.2); RDW Standard Deviation 40.6 fL (35.1-46.3); Red Blood Cell Count 5.79 M/mm3 (4.30-5.90); White Blood Cell Count 14.14 K/mm3 (4.00-11.30)
[2025-01-05 14:04] LABS: Albumin, Blood 3.8 g/dL (3.4-5.0); Albumin/Globulin Ratio 0.9 (0.8-1.8); Bilirubin, Total 0.3 mg/dL (0.1-1.0); Bun/Creatinine Ratio 14.9 (12.0-20.0); Calcium, Blood 9.1 mg/dL (8.5-10.1); Creatinine, Blood 1.01 mg/dL (0.60-1.20); Globulin, Blood 4.2 g/dL (2.2-4.0); Potassium, Blood 3.7 mmol/L (3.5-5.5)
== END ==
LOC: LAB 13:46 → LAB SHORT 13:46
PROVIDERS: Physician Assistant Medical
DX: R10.13 Epigastric pain (principal)
CPT/HCPCS: 80053; 83690; 85025